=== PATIENT | female | born 1990 | race African-American/Black ===

== ENCOUNTER 2019-09-09 13:36 | Observation (INO) ==
[2019-09-09 21:58] LABS: Apearance,Urine CLOUDY (Clear); Bacteria,Urine Occasional /HPF (Few); Bilirubin,Urine Negative (Negative); Blood, Urine Negative (Negative); Glucose,Urine (UA) Negative (Negative); Ketones,Urine Negative (Negative); Mucus,Urine Few /LPF (Occasional); Nitrite,Urine Negative (Negative); Protein,Urine Negative; Squamous Epithelial Cell,Urine Moderate /HPF (0-10); Urine Color Yellow (Yellow); Urine Specific Gravity 1.018 (1.001-1.035); Urine Urobilinogen < 2.0 EU/DL (0.2-1.0)
[2019-09-10 00:08] LABS: Alanine Aminotransferase 12 U/L (13-56); Albumin 3.5 G/DL (3.4-5.0); Alkaline Phosphatase 134 U/L (45-117); Aspartate Amino Transferase 14 U/L (0-37); Bilirubin,Total < 0.39 MG/DL (0.2-1.0); Blood Urea Nitrogen 14 MG/DL (7-18); Calcium 9.4 MG/DL (8.5-10.1); Estimated Glom Filtration Rate 93 ML/MIN; Glucose 77 MG/DL (74-106); Total Protein 7.7 G/DL (6.4-8.3)
[2019-09-10 00:43] LABS: PT Patient Result 10.9 SECS (9.8-11.9)
[2019-09-10] MEDS ORDERED: MORPHINE 4 MG/1 ML VIAL IV PRN (02:20)
[2019-09-10] MEDS ORDERED: ACETAMINOPHEN 325 MG TABLET PO PRN (02:20)
[2019-09-10] MEDS ORDERED: ONDANSETRON 4 MG/2 ML VIAL IV PRN (02:20)
[2019-09-10] MEDS ORDERED: SODIUM CHLORIDE 0.9% 1,000 ML IV SCH (02:20)
[2019-09-10 06:41] LABS: Basophils % 0.2 % (0.0-0.8); Eosinophils # 0.1 10*3/uL (0.0-0.87); Eosinophils % 1.5 % (0.00-10.9); Hematocrit 24.1 VOL% (35.7-47.0); Immature Granulocytes % 0.7 %; Immature Granulocytes Absolute 0.03 #; Lymphocytes % 20.7 % (21.3-54.2); Mean Corpuscular Volume 91.6 FL (87-102); Mean Platelet Volume 12.3 FL (9.6-12.0); Monocytes % 8.9 % (1.7-12.7); Platelet Count 167 T/CUMM (130-400); Red Blood Count 2.63 MC/CUMM (3.8-5.5); Red Cell Distribution Width 17.6 % (9.3-17.3); White Blood Count 4.6 T/CUMM (4-12)
[2019-09-10 07:11] LABS: Albumin 1.8 G/DL (3.4-5.0); Bilirubin,Total 1.3 MG/DL (0.2-1.0); Osmolality,Calculated 285.8 MOS/KG (273-304); Total Protein 5.3 G/DL (6.4-8.3)
[2019-09-10] MEDS: PANTOPRAZOLE 40 MG TABLET PO SCH (09:12)
[2019-09-10] MEDS ORDERED: POTASSIUM CHLORIDE 20 MEQ TABLET PO PRN (12:22)
[2019-09-10 12:51] LABS: Hemoglobin 9.9 GM/DL (12.0-16.0)
[2019-09-10] MEDS: POTASSIUM CHLORIDE 20 MEQ TABLET PO SCH ×2 (12:55→21:06)
[2019-09-11 08:22] VITALS: BP 129/97
[2019-09-11] MEDS: PANTOPRAZOLE 40 MG TABLET PO SCH (09:04)
[2019-09-11] MEDS: POTASSIUM CHLORIDE 20 MEQ TABLET PO SCH (09:04)
[2019-09-11 09:32] LABS: Basophils % 0.3 % (0.0-0.8); Eosinophils # 0.1 10*3/uL (0.0-0.87); Eosinophils % 1.7 % (0.00-10.9); Hematocrit 32.7 VOL% (35.7-47.0); Hemoglobin 9.8 GM/DL (12.0-16.0); Immature Granulocytes % 0.2 %; Immature Granulocytes Absolute 0.01 #; Lymphocytes # 0.9 10*3/uL (1.4-4.0); Mean Corpuscular Volume 77.7 FL (87-102); Mean Platelet Volume 10.9 FL (9.6-12.0); Monocytes % 6.5 % (1.7-12.7); Neutrophils % 75.3 % (38.7-73.9); Platelet Count 313 T/CUMM (130-400); Red Blood Count 4.21 MC/CUMM (3.8-5.5); Red Cell Distribution Width 15.1 % (9.3-17.3); White Blood Count 5.9 T/CUMM (4-12)
[2019-09-11 10:03] LABS: Calcium 9.2 MG/DL (8.5-10.1)
== END 2019-09-11 12:20 | disposition home or self-care (01) ==
LOC: N.EDINP 13:36 → N.ED 13:36 → N.EDINP 09-10 01:46 → N.3E 09-10 02:32
PROVIDERS: ADMIT Surgery; ATTEND Surgery

== ENCOUNTER 2019-10-29 21:13 | Inpatient (IN) ==
[2019-10-29 21:53] LABS: Basophils % 0.1 % (0.0-0.8); Hematocrit 22.6 VOL% (35.7-47.0); Hemoglobin 6.7 GM/DL (12.0-16.0); Immature Granulocytes % 0.8 %; Immature Granulocytes Absolute 0.19 #; Lymphocytes # 1.1 10*3/uL (1.4-4.0); Lymphocytes % 4.6 % (21.3-54.2); Mean Corpuscular HGB Conc 29.6 GM/DL (32-36); Mean Corpuscular Volume 72.7 FL (87-102); Mean Platelet Volume 8.5 FL (9.6-12.0); Monocytes % 4.9 % (1.7-12.7); Neutrophils % 89.6 % (38.7-73.9); Platelet Count 384 T/CUMM (130-400); Red Blood Count 3.11 MC/CUMM (3.8-5.5); Red Cell Distribution Width 18.4 % (9.3-17.3); White Blood Count 23.6 T/CUMM (4-12)
[2019-10-29 22:20] LABS: Bilirubin,Total 0.5 MG/DL (0.2-1.0); Calcium 8.6 MG/DL (8.5-10.1); Total Protein 7.2 G/DL (6.4-8.3)
[2019-10-29] MEDS ORDERED: SODIUM CHLORIDE 0.9% 1,000 ML IV STA (22:41)
[2019-10-29] MEDS ORDERED: MORPHINE 4 MG/1 ML VIAL IV ONE (22:42)
[2019-10-29] MEDS ORDERED: ONDANSETRON 4 MG/2 ML VIAL IV STA (22:42)
[2019-10-29 23:09] LABS: INR 1.1; PT Patient Result 11.4 SECS (9.8-11.9); Partial Thromboplastin Time 25.1 SECS (23.9-33.8)
[2019-10-29] MEDS ORDERED: PIPERACILLIN/TAZOBACTAM 3,375 MG in SODIUM CHLORIDE 0.9% 100 ML IV STA (23:31)
[2019-10-29] MEDS ORDERED: SODIUM CHLORIDE 0.9% 1,000 ML IV PRN (23:33)
[2019-10-29 23:37] LABS: Band Neutrophils 1 % (0-10); Lymphocytes 6 % (20-55); Segmented Neutrophils 93 % (50-85); Total Cells Counted 100
[2019-10-29 23:38] LABS: Anisocytosis 1+; Hypochromasia 2+; Microcytosis 3+; Platelet Estimate Normal; Polychromasia Slight
[2019-10-29 23:39] LABS: Ovalocytes Slight
[2019-10-29 23:40] LABS: Schistocytes Slight
[2019-10-30 00:10] LABS: Apearance,Urine CLEAR (Clear); Bilirubin,Urine Negative (Negative); Blood, Urine Moderate mg/dL (Negative); Glucose,Urine (UA) 50 mg/dL (Negative); Ketones,Urine Negative (Negative); Mucus,Urine Moderate /LPF (Occasional); Nitrite,Urine Negative (Negative); Protein,Urine Negative; RBC,Urine 25 /HPF (0-4); Squamous Epithelial Cell,Urine Occasional /HPF (0-10); Urine Color Yellow (Yellow); Urine Specific Gravity > 1.060 (1.001-1.035); Urine Urobilinogen < 2.0 EU/DL (0.2-1.0)
[2019-10-30] MEDS ORDERED: HYDROmorphone 2 MG/1 ML VIAL IV STA (00:12)
[2019-10-30] MEDS ORDERED: BISACODYL 5 MG TABLET PO PRN (01:46)
[2019-10-30] MEDS ORDERED: GLUCAGON 1 MG VIAL IM PRN (01:46)
[2019-10-30] MEDS ORDERED: DEXTROSE 50% 25 GM/50 ML VIAL IV PRN ×2 (01:46→02:29)
[2019-10-30] MEDS: HYDROmorphone 2 MG/1 ML VIAL IV PRN ×5 (03:00→21:03)
[2019-10-30] MEDS: SODIUM CHLORIDE 0.9% 1,000 ML IV SCH ×4 (03:51→21:03)
[2019-10-30] MEDS: hydrALAZINE 20 MG/1 ML VIAL IV PRN (06:38)
[2019-10-30 07:30] LABS: Alanine Aminotransferase 11 U/L (13-56); Albumin 2.5 G/DL (3.4-5.0); Alkaline Phosphatase 98 U/L (45-117); Aspartate Amino Transferase 23 U/L (0-37); Bilirubin,Total < 0.39 MG/DL (0.2-1.0); Blood Urea Nitrogen 11 MG/DL (7-18); Calcium 8.3 MG/DL (8.5-10.1); Estimated Glom Filtration Rate 113 ML/MIN; Glucose 113 MG/DL (74-106); Total Protein 6.1 G/DL (6.4-8.3)
[2019-10-30] MEDS ORDERED: INSULIN LISPRO 100 UNIT/ML SUBCUT SCH (07:30)
[2019-10-30] MEDS ORDERED: METOPROLOL TARTRATE 5 MG/5 ML VIAL IV ONE (09:34)
[2019-10-30] MEDS: PYRIDOXINE 50 MG TABLET PO SCH (09:36)
[2019-10-30] MEDS: THIAMINE 100 MG TABLET PO SCH (09:36)
[2019-10-30] MEDS: MULTIVITAMIN (CENTRUM) TABLET PO SCH (09:36)
[2019-10-30] MEDS: PANTOPRAZOLE 40 MG TABLET PO SCH (09:36)
[2019-10-30] MEDS: oxyCODONE/ACETAMINOPHEN 5-325 MG TABLET PO PRN (12:17)
[2019-10-30] MEDS: METOPROLOL TARTRATE 25 MG TABLET PO SCH ×2 (12:18→21:03)
[2019-10-30 13:23] LABS: Hematocrit 28.7 VOL% (35.7-47.0)
[2019-10-30 13:26] LABS: Hemoglobin 9.5 GM/DL (12.0-16.0)
[2019-10-30] MEDS: PIPERACILLIN/TAZOBACTAM 3,375 MG in SODIUM CHLORIDE 0.9% 100 ML IV SCH (15:32)
[2019-10-31] MEDS: hydrALAZINE 20 MG/1 ML VIAL IV PRN ×2 (00:11→18:25)
[2019-10-31] MEDS: HYDROmorphone 2 MG/1 ML VIAL IV PRN ×7 (00:12→20:34)
[2019-10-31] MEDS: PIPERACILLIN/TAZOBACTAM 3,375 MG in SODIUM CHLORIDE 0.9% 100 ML IV SCH ×3 (00:20→16:22)
[2019-10-31] MEDS: LACTATED RINGERS 1,000 ML IV SCH ×3 (03:18→20:33)
[2019-10-31 06:31] LABS: Basophils % 0.1 % (0.0-0.8); Hematocrit 28.3 VOL% (35.7-47.0); Hemoglobin 9.2 GM/DL (12.0-16.0); Immature Granulocytes % 0.9 %; Lymphocytes # 1.5 10*3/uL (1.4-4.0); Lymphocytes % 6.9 % (21.3-54.2); Mean Corpuscular HGB Conc 32.5 GM/DL (32-36); Mean Corpuscular Volume 76.9 FL (87-102); Mean Platelet Volume 8.9 FL (9.6-12.0); Monocytes % 7.9 % (1.7-12.7); NRBC # 0.02 10*3/uL; Neutrophils % 84.2 % (38.7-73.9); Platelet Count 226 T/CUMM (130-400); Red Blood Count 3.68 MC/CUMM (3.8-5.5); Red Cell Distribution Width 19.3 % (9.3-17.3); White Blood Count 21.8 T/CUMM (4-12)
[2019-10-31 06:50] LABS: Calcium 8.3 MG/DL (8.5-10.1)
[2019-10-31 06:54] LABS: Hypochromasia 1+; Lymphocytes 8 % (20-55); Microcytosis Slight; Nucleated Red Blood Cells 1 (0-5); Ovalocytes Slight; Platelet Estimate Adequate; Segmented Neutrophils 89 % (50-85); Total Cells Counted 100
[2019-10-31] MEDS: THIAMINE 100 MG TABLET PO SCH (09:46)
[2019-10-31] MEDS: PANTOPRAZOLE 40 MG TABLET PO SCH (09:46)
[2019-10-31] MEDS: MULTIVITAMIN (CENTRUM) TABLET PO SCH (09:47)
[2019-10-31] MEDS: PYRIDOXINE 50 MG TABLET PO SCH (09:47)
[2019-10-31] MEDS: METOPROLOL TARTRATE 25 MG TABLET PO SCH ×2 (09:47→20:33)
[2019-10-31] MEDS: oxyCODONE/ACETAMINOPHEN 5-325 MG TABLET PO PRN (11:11)
[2019-10-31] MEDS ORDERED: METOPROLOL TARTRATE 25 MG TABLET PO ONE (14:28)
[2019-10-31] MEDS ORDERED: fentaNYL 25 MCG/HR PATCH TRANSDERM SCH (15:00)
[2019-10-31] MEDS: ONDANSETRON 4 MG/2 ML VIAL IV PRN (21:18)
[2019-11-01] MEDS: PIPERACILLIN/TAZOBACTAM 3,375 MG in SODIUM CHLORIDE 0.9% 100 ML IV SCH ×2 (00:59→11:54)
[2019-11-01] MEDS: HYDROmorphone 2 MG/1 ML VIAL IV PRN ×7 (00:59→22:00)
[2019-11-01] MEDS: ONDANSETRON 4 MG/2 ML VIAL IV PRN ×3 (04:50→22:00)
[2019-11-01 05:17] LABS: Basophils % 0.1 % (0.0-0.8); Hematocrit 25.5 VOL% (35.7-47.0); Hemoglobin 8.3 GM/DL (12.0-16.0); Immature Granulocytes Absolute 0.22 #; Lymphocytes # 1.4 10*3/uL (1.4-4.0); Lymphocytes % 6.1 % (21.3-54.2); Mean Corpuscular HGB Conc 32.5 GM/DL (32-36); Mean Corpuscular Volume 75.9 FL (87-102); Mean Platelet Volume 9.6 FL (9.6-12.0); Monocytes % 6.5 % (1.7-12.7); NRBC # 0.02 10*3/uL; Neutrophils % 86.3 % (38.7-73.9); Platelet Count 254 T/CUMM (130-400); Red Blood Count 3.36 MC/CUMM (3.8-5.5); Red Cell Distribution Width 20.1 % (9.3-17.3); White Blood Count 22.5 T/CUMM (4-12)
[2019-11-01 05:47] LABS: Hypochromasia 1+; Lymphocytes 9 % (20-55); Microcytosis Slight; Ovalocytes Slight; Platelet Estimate Adequate; Segmented Neutrophils 89 % (50-85); Total Cells Counted 100
[2019-11-01 05:50] LABS: Calcium 8.4 MG/DL (8.5-10.1); Osmolality,Calculated 261.4 MOS/KG (273-304)
[2019-11-01] MEDS: LACTATED RINGERS 1,000 ML IV SCH ×2 (07:09→07:10)
[2019-11-01] MEDS ORDERED: FUROSEMIDE 40 MG/4 ML VIAL IV ONE (07:20)
[2019-11-01 07:49] LABS: % Iron Saturation 3.7 % (18-50); Ferritin 174.2 ng/ml (8-252)
[2019-11-01] MEDS: METOPROLOL TARTRATE 25 MG TABLET PO SCH (09:24)
[2019-11-01] MEDS: MULTIVITAMIN (CENTRUM) TABLET PO SCH (09:24)
[2019-11-01] MEDS: PYRIDOXINE 50 MG TABLET PO SCH (09:24)
[2019-11-01] MEDS: PANTOPRAZOLE 40 MG TABLET PO SCH (09:24)
[2019-11-01] MEDS: THIAMINE 100 MG TABLET PO SCH (09:25)
[2019-11-01 09:50] LABS: Folate 3.9 NG/ML (5.4-24.0)
[2019-11-01] MEDS: VANCOMYCIN INJ 1,000 MG in SODIUM CHLORIDE 0.9% 250 ML IV SCH ×2 (11:02→21:58)
[2019-11-01] MEDS: hydrALAZINE 20 MG/1 ML VIAL IV PRN (11:52)
[2019-11-01] MEDS ORDERED: METOPROLOL TARTRATE 25 MG TABLET PO SCH (13:39)
[2019-11-01 19:05] LABS: Lymphocytes,Pleural Fluid 12 %; Monocytes,Pleural Fluid 28 %; Neutrophils,Pleural Fluid 60 %; RBC,Pleural Fluid 9928 T/CUMM
[2019-11-01] MEDS: amLODIPine 5 MG TABLET PO SCH (21:59)
[2019-11-02] MEDS: PIPERACILLIN/TAZOBACTAM 3,375 MG in SODIUM CHLORIDE 0.9% 100 ML IV SCH ×3 (00:25→22:27)
[2019-11-02] MEDS: HYDROmorphone 2 MG/1 ML VIAL IV PRN ×6 (00:39→22:22)
[2019-11-02 05:33] LABS: Basophils % 0.1 % (0.0-0.8); Hematocrit 27.4 VOL% (35.7-47.0); Hemoglobin 8.8 GM/DL (12.0-16.0); Immature Granulocytes % 0.8 %; Immature Granulocytes Absolute 0.21 #; Lymphocytes # 1.2 10*3/uL (1.4-4.0); Lymphocytes % 4.9 % (21.3-54.2); Mean Corpuscular HGB Conc 32.1 GM/DL (32-36); Mean Corpuscular Volume 76.8 FL (87-102); Mean Platelet Volume 9.4 FL (9.6-12.0); Monocytes % 7.6 % (1.7-12.7); Neutrophils % 86.6 % (38.7-73.9); Platelet Count 343 T/CUMM (130-400); Red Blood Count 3.57 MC/CUMM (3.8-5.5); Red Cell Distribution Width 20.5 % (9.3-17.3); White Blood Count 25.3 T/CUMM (4-12)
[2019-11-02 05:56] LABS: Lymphocytes 4 % (20-55); Platelet Estimate Adequate; Segmented Neutrophils 89 % (50-85); Total Cells Counted 100
[2019-11-02 05:57] LABS: Hypochromasia 1+; Microcytosis Slight; Ovalocytes Slight
[2019-11-02 05:58] LABS: Calcium 8.6 MG/DL (8.5-10.1); Osmolality,Calculated 266.1 MOS/KG (273-304)
[2019-11-02] MEDS: ONDANSETRON 4 MG/2 ML VIAL IV PRN ×2 (06:21→11:24)
[2019-11-02] MEDS ORDERED: POTASSIUM CHLORIDE 20 MEQ TABLET PO ONE ×3 (07:19→17:00)
[2019-11-02] MEDS ORDERED: LACTATED RINGERS 1,000 ML IV SCH (08:00)
[2019-11-02] MEDS: MULTIVITAMIN (CENTRUM) TABLET PO SCH (08:28)
[2019-11-02] MEDS: THIAMINE 100 MG TABLET PO SCH (08:28)
[2019-11-02] MEDS: PYRIDOXINE 50 MG TABLET PO SCH (08:28)
[2019-11-02] MEDS: PANTOPRAZOLE 40 MG TABLET PO SCH (08:28)
[2019-11-02] MEDS: METOPROLOL TARTRATE 50 MG TABLET PO SCH ×2 (08:33→21:15)
[2019-11-02] MEDS: amLODIPine 5 MG TABLET PO SCH (08:33)
[2019-11-02] MEDS: oxyCODONE/ACETAMINOPHEN 5-325 MG TABLET PO PRN ×3 (08:33→17:44)
[2019-11-02] MEDS: DILTIAZEM 30 MG TABLET PO SCH ×3 (08:33→21:10)
[2019-11-02] MEDS ORDERED: DILTIAZEM 30 MG TABLET PO SCH (09:00)
[2019-11-02] MEDS: fentaNYL 50 MCG/HR PATCH TRANSDERM SCH (09:38)
[2019-11-02] MEDS: VANCOMYCIN INJ 1,000 MG in SODIUM CHLORIDE 0.9% 250 ML IV SCH ×2 (09:38→21:14)
[2019-11-02] MEDS: IRON SUCROSE 200 MG in SODIUM CHLORIDE 0.9% 100 ML IV SCH (15:09)
[2019-11-02] MEDS: methylPREDNISolone SOD SUC 40 MG/1 ML VIAL IV SCH (17:44)
[2019-11-02] MEDS: ALBUTEROL 2.5 MG/3 ML NEB RESP TX SCH (23:47)
[2019-11-03] MEDS: methylPREDNISolone SOD SUC 40 MG/1 ML VIAL IV SCH (00:22)
[2019-11-03] MEDS: HYDROmorphone 2 MG/1 ML VIAL IV PRN ×4 (02:30→21:49)
[2019-11-03] MEDS: PIPERACILLIN/TAZOBACTAM 3,375 MG in SODIUM CHLORIDE 0.9% 100 ML IV SCH ×3 (05:09→21:01)
[2019-11-03 06:15] LABS: Hematocrit 25.8 VOL% (35.7-47.0); Hemoglobin 8.2 GM/DL (12.0-16.0); Immature Granulocytes % 0.8 %; Lymphocytes # 0.8 10*3/uL (1.4-4.0); Lymphocytes % 3.2 % (21.3-54.2); Mean Corpuscular HGB Conc 31.8 GM/DL (32-36); Mean Corpuscular Volume 77.2 FL (87-102); Mean Platelet Volume 8.7 FL (9.6-12.0); Monocytes % 1.2 % (1.7-12.7); NRBC # 0.02 10*3/uL; Neutrophils % 94.8 % (38.7-73.9); Platelet Count 376 T/CUMM (130-400); Red Blood Count 3.34 MC/CUMM (3.8-5.5); Red Cell Distribution Width 20.9 % (9.3-17.3); White Blood Count 23.8 T/CUMM (4-12)
[2019-11-03 06:32] LABS: Albumin 2.2 G/DL (3.4-5.0); Bilirubin,Total 0.8 MG/DL (0.2-1.0); Calcium 8.8 MG/DL (8.5-10.1); Osmolality,Calculated 270.8 MOS/KG (273-304); Total Protein 6.4 G/DL (6.4-8.3)
[2019-11-03 06:54] LABS: Band Neutrophils 7 % (0-10); Lymphocytes 1 % (20-55); Platelet Estimate Normal; Poikilocytosis 1+; Segmented Neutrophils 91 % (50-85); Total Cells Counted 100
[2019-11-03 06:55] LABS: Anisocytosis 3+; Burr Cells Few; Hypochromasia Slight
[2019-11-03] MEDS: ALBUTEROL 2.5 MG/3 ML NEB RESP TX SCH ×3 (07:18→23:29)
[2019-11-03] MEDS ORDERED: diphenhydrAMINE 50 MG/1 ML VIAL IV ONE (08:00)
[2019-11-03] MEDS ORDERED: DEXAMETHASONE INJ 20 MG in SODIUM CHLORIDE 0.9% 50 ML IV ONE (08:00)
[2019-11-03] MEDS ORDERED: FAMOTIDINE INJ 40 MG in SODIUM CHLORIDE 0.9% 100 ML IV ONE (08:00)
[2019-11-03] MEDS ORDERED: FOSAPREPITANT 150 MG in SODIUM CHLORIDE 0.9% 100 ML IV ONE (08:00)
[2019-11-03] MEDS ORDERED: PALONOSETRON 0.25 MG/5 ML VIAL IV ONE (08:00)
[2019-11-03] MEDS ORDERED: DOCETAXEL IV ONE (09:00)
[2019-11-03] MEDS ORDERED: SODIUM CHLORIDE 0.9% IV ONE ×2 (09:00)
[2019-11-03] MEDS ORDERED: GEMCITABINE IV ONE (09:00)
[2019-11-03] MEDS: METOPROLOL TARTRATE 50 MG TABLET PO SCH ×2 (09:43→20:25)
[2019-11-03] MEDS: THIAMINE 100 MG TABLET PO SCH (09:43)
[2019-11-03] MEDS: PYRIDOXINE 50 MG TABLET PO SCH (09:43)
[2019-11-03] MEDS: PANTOPRAZOLE 40 MG TABLET PO SCH (09:43)
[2019-11-03] MEDS: MULTIVITAMIN (CENTRUM) TABLET PO SCH (09:44)
[2019-11-03] MEDS: DILTIAZEM 60 MG TABLET PO SCH ×3 (09:44→20:24)
[2019-11-03] MEDS: amLODIPine 5 MG TABLET PO SCH (09:45)
[2019-11-03] MEDS: VANCOMYCIN INJ 1,000 MG in SODIUM CHLORIDE 0.9% 250 ML IV SCH ×2 (09:49→17:31)
[2019-11-03] MEDS: CHLORHEXIDINE 0.12% ORAL RINSE 60 ML BOTTLE SWISH/SPIT SCH ×2 (10:37→20:25)
[2019-11-03] MEDS: IRON SUCROSE 200 MG in SODIUM CHLORIDE 0.9% 100 ML IV SCH (16:39)
[2019-11-03] MEDS ORDERED: guaiFENesin/CODEINE 5 ML LIQUID PO PRN (17:29)
[2019-11-03] MEDS: oxyCODONE/ACETAMINOPHEN 5-325 MG TABLET PO PRN (20:25)
[2019-11-04] MEDS: VANCOMYCIN INJ 1,000 MG in SODIUM CHLORIDE 0.9% 250 ML IV SCH ×4 (00:01→18:37)
[2019-11-04] MEDS: PIPERACILLIN/TAZOBACTAM 3,375 MG in SODIUM CHLORIDE 0.9% 100 ML IV SCH ×3 (06:19→21:10)
[2019-11-04] MEDS: ALBUTEROL 2.5 MG/3 ML NEB RESP TX SCH ×2 (07:27→15:10)
[2019-11-04] MEDS: METOPROLOL TARTRATE 50 MG TABLET PO SCH ×2 (08:46→21:09)
[2019-11-04] MEDS: MULTIVITAMIN (CENTRUM) TABLET PO SCH (08:46)
[2019-11-04] MEDS: amLODIPine 5 MG TABLET PO SCH (08:46)
[2019-11-04] MEDS: DILTIAZEM 60 MG TABLET PO SCH ×3 (08:46→21:09)
[2019-11-04] MEDS: THIAMINE 100 MG TABLET PO SCH (08:46)
[2019-11-04] MEDS: PANTOPRAZOLE 40 MG TABLET PO SCH (08:47)
[2019-11-04] MEDS: PYRIDOXINE 50 MG TABLET PO SCH (08:47)
[2019-11-04] MEDS: CHLORHEXIDINE 0.12% ORAL RINSE 60 ML BOTTLE SWISH/SPIT SCH ×2 (08:54→21:09)
[2019-11-04] MEDS: IRON SUCROSE 200 MG in SODIUM CHLORIDE 0.9% 100 ML IV SCH (12:18)
[2019-11-05] MEDS: ALBUTEROL 2.5 MG/3 ML NEB RESP TX SCH ×3 (00:35→15:41)
[2019-11-05] MEDS: VANCOMYCIN INJ 1,000 MG in SODIUM CHLORIDE 0.9% 250 ML IV SCH (02:49)
[2019-11-05] MEDS: PIPERACILLIN/TAZOBACTAM 3,375 MG in SODIUM CHLORIDE 0.9% 100 ML IV SCH ×2 (05:50→13:24)
[2019-11-05 06:52] LABS: Albumin 1.3 G/DL (3.4-5.0); Bilirubin,Total 0.5 MG/DL (0.2-1.0); Calcium 8.4 MG/DL (8.5-10.1); Osmolality,Calculated 278.4 MOS/KG (273-304); Total Protein 6.5 G/DL (6.4-8.3)
[2019-11-05] MEDS ORDERED: POTASSIUM CHLORIDE 20 MEQ TABLET PO PRN (07:14)
[2019-11-05] MEDS: CHLORHEXIDINE 0.12% ORAL RINSE 60 ML BOTTLE SWISH/SPIT SCH (08:14)
[2019-11-05] MEDS: MULTIVITAMIN (CENTRUM) TABLET PO SCH (08:17)
[2019-11-05] MEDS: PYRIDOXINE 50 MG TABLET PO SCH (08:17)
[2019-11-05] MEDS: DILTIAZEM 60 MG TABLET PO SCH ×2 (08:17→14:13)
[2019-11-05] MEDS: METOPROLOL TARTRATE 50 MG TABLET PO SCH (08:18)
[2019-11-05] MEDS: fentaNYL 50 MCG/HR PATCH TRANSDERM SCH (08:18)
[2019-11-05] MEDS: amLODIPine 5 MG TABLET PO SCH (08:18)
[2019-11-05] MEDS: PANTOPRAZOLE 40 MG TABLET PO SCH (08:18)
[2019-11-05] MEDS: THIAMINE 100 MG TABLET PO SCH (08:18)
[2019-11-05] MEDS: POTASSIUM CHLORIDE 20 MEQ TABLET PO SCH ×2 (08:18→11:31)
[2019-11-05] MEDS: IRON SUCROSE 200 MG in SODIUM CHLORIDE 0.9% 100 ML IV SCH (08:19)
[2019-11-05] MEDS ORDERED: POTASSIUM PHOSPHATE 30 MMOL in SODIUM CHLORIDE 0.9% 250 ML IV ONE (12:00)
[2019-11-05] MEDS: ONDANSETRON 4 MG/2 ML VIAL IV PRN (14:13)
[2019-11-05] MEDS: oxyCODONE/ACETAMINOPHEN 5-325 MG TABLET PO PRN (17:39)
[2019-11-05] MEDS ORDERED: HEPARIN LOCK FLUSH 500 UNIT/5 ML SYRINGE IV ONE (18:12)
[2019-11-06 05:43] VITALS: BP 122/76
== END 2019-11-05 20:45 | disposition home or self-care (01) | DRG 948 ==
LOC: N.ED 21:13 → N.EDINP 10-30 01:46 → SUATTDRO 10-30 01:46 → SUPCPDRO 10-30 01:46 → N.EDINP 10-30 03:05 → N.TELEN 10-30 03:19 → N.4E 11-02 20:52
PROVIDERS: ADMIT Internal Medicine; ATTEND Internal Medicine

== ENCOUNTER 2019-11-07 08:22 | Observation (INO) ==
[2019-11-07] MEDS ORDERED: ONDANSETRON 4 MG/2 ML VIAL IV STA (09:25)
[2019-11-07] MEDS ORDERED: HYDROmorphone 2 MG/1 ML VIAL IV STA ×2 (09:25→13:43)
[2019-11-07] MEDS ORDERED: SODIUM CHLORIDE 0.9% 1,000 ML IV STA (09:25)
[2019-11-07 09:37] LABS: Basophils % 0.1 % (0.0-0.8); Eosinophils # 0.1 10*3/uL (0.0-0.87); Eosinophils % 0.5 % (0.00-10.9); Hematocrit 27.8 VOL% (35.7-47.0); Hemoglobin 8.7 GM/DL (12.0-16.0); Immature Granulocytes % 0.4 %; Immature Granulocytes Absolute 0.05 #; Lymphocytes # 0.8 10*3/uL (1.4-4.0); Lymphocytes % 6.6 % (21.3-54.2); Mean Corpuscular HGB Conc 31.3 GM/DL (32-36); Mean Corpuscular Volume 77.2 FL (87-102); Mean Platelet Volume 10.3 FL (9.6-12.0); Monocytes % 0.3 % (1.7-12.7); Neutrophils % 92.1 % (38.7-73.9); Platelet Count 358 T/CUMM (130-400); Red Cell Distribution Width 22.5 % (9.3-17.3)
[2019-11-07 09:50] LABS: Eosinophils 1 % (0-10); Lymphocytes 5 % (20-55); Segmented Neutrophils 94 % (50-85); Total Cells Counted 100
[2019-11-07 09:51] LABS: Hypochromasia 1+; Microcytosis Slight; Platelet Estimate Adequate
[2019-11-07 09:52] LABS: Alanine Aminotransferase 60 U/L (13-56); Albumin 2.9 G/DL (3.4-5.0); Alkaline Phosphatase 126 U/L (45-117); Aspartate Amino Transferase 74 U/L (0-37); Blood Urea Nitrogen 17 MG/DL (7-18); Calcium 8.9 MG/DL (8.5-10.1); Estimated Glom Filtration Rate 113 ML/MIN; Glucose 111 MG/DL (74-106); Total Protein 6.5 G/DL (6.4-8.3); Troponin I < 0.015 NG/ML (0.00-0.045)
[2019-11-07 09:56] LABS: PT Patient Result 10.7 SECS (9.8-11.9); Partial Thromboplastin Time 32.4 SECS (23.9-33.8)
[2019-11-07 10:31] LABS: Apearance,Urine CLEAR (Clear); Bilirubin,Urine Negative (Negative); Blood, Urine Small mg/dL (Negative); Glucose,Urine (UA) Negative (Negative); Ketones,Urine Negative (Negative); Mucus,Urine Moderate /LPF (Occasional); Nitrite,Urine Negative (Negative); Protein,Urine Negative; RBC,Urine 1 /HPF (0-4); Squamous Epithelial Cell,Urine Few /HPF (0-10); Urine Color Yellow (Yellow); Urine Specific Gravity 1.012 (1.001-1.035); Urine Urobilinogen < 2.0 EU/DL (0.2-1.0); WBC,Urine <1 /HPF (0-6)
[2019-11-07 11:26] LABS: Barbiturates Screen,Urine Negative (Negative); Benzodiazepines Screen,Urine Negative (Negative); Cannabinoid Screen,Urine Negative (Negative); Opiate Screen,Urine Positive (Negative); Phencyclidine Screen,Urine Negative (Negative)
[2019-11-07] MEDS ORDERED: ENOXAPARIN 100 MG/ML SYRINGE SUBCUT STA (13:18)
[2019-11-07] MEDS ORDERED: DOCUSATE SODIUM 100 MG CAPSULE PO PRN (14:31)
[2019-11-07] MEDS ORDERED: GLUCAGON 1 MG VIAL IM PRN (14:31)
[2019-11-07] MEDS ORDERED: hydrALAZINE 20 MG/1 ML VIAL IV PRN (14:31)
[2019-11-07] MEDS ORDERED: DEXTROSE 50% 25 GM/50 ML VIAL IV PRN (14:31)
[2019-11-07] MEDS ORDERED: ACETAMINOPHEN 325 MG TABLET PO PRN (14:31)
[2019-11-07] MEDS ORDERED: ONDANSETRON 4 MG TABLET PO PRN (14:37)
[2019-11-07 14:54] LABS: Risk Ratio 3.98; VLDL CHOLESTEROL 26.8 MG/DL
[2019-11-07] MEDS ORDERED: HYDROmorphone 2 MG/1 ML VIAL IV PRN (17:24)
[2019-11-07] MEDS: amLODIPine 5 MG TABLET PO SCH (17:31)
[2019-11-07] MEDS: POTASSIUM CHLORIDE 20 MEQ TABLET PO SCH (17:31)
[2019-11-07] MEDS: METOPROLOL TARTRATE 50 MG TABLET PO SCH ×2 (17:31→20:43)
[2019-11-07] MEDS: AMOXICILLIN/CLAV 875 MG TABLET PO SCH ×2 (17:31→20:43)
[2019-11-07] MEDS: APIXABAN 5 MG TABLET PO SCH (20:43)
[2019-11-07] MEDS: FERROUS SULFATE 325 MG TABLET PO SCH (20:43)
[2019-11-07] MEDS: HYDROmorphone 2 MG/1 ML VIAL IV PRN (20:44)
[2019-11-07] MEDS: oxyCODONE/ACETAMINOPHEN 5-325 MG TABLET PO PRN (23:57)
[2019-11-08] MEDS: HYDROmorphone 2 MG/1 ML VIAL IV PRN ×2 (04:02→08:22)
[2019-11-08 06:08] LABS: Eosinophils # 0.1 10*3/uL (0.0-0.87); Eosinophils % 1.2 % (0.00-10.9); Hematocrit 25.4 VOL% (35.7-47.0); Immature Granulocytes % 0.5 %; Immature Granulocytes Absolute 0.05 #; Lymphocytes # 1.1 10*3/uL (1.4-4.0); Mean Corpuscular HGB Conc 31.5 GM/DL (32-36); Mean Corpuscular Volume 76.7 FL (87-102); Mean Platelet Volume 9.5 FL (9.6-12.0); Monocytes % 0.7 % (1.7-12.7); Neutrophils % 87.6 % (38.7-73.9); Platelet Count 274 T/CUMM (130-400); Red Blood Count 3.31 MC/CUMM (3.8-5.5); Red Cell Distribution Width 22.5 % (9.3-17.3); White Blood Count 10.8 T/CUMM (4-12)
[2019-11-08 06:22] LABS: Calcium 8.6 MG/DL (8.5-10.1); Osmolality,Calculated 275.7 MOS/KG (273-304)
[2019-11-08 06:45] LABS: Band Neutrophils 2 % (0-10); Eosinophils 3 % (0-10); Hypochromasia 1+; Lymphocytes 15 % (20-55); Segmented Neutrophils 79 % (50-85); Total Cells Counted 100
[2019-11-08 06:46] LABS: Microcytosis 1+; Platelet Estimate Normal; Target Cells Slight
[2019-11-08] MEDS: amLODIPine 5 MG TABLET PO SCH (08:14)
[2019-11-08] MEDS: FERROUS SULFATE 325 MG TABLET PO SCH (08:14)
[2019-11-08] MEDS: AMOXICILLIN/CLAV 875 MG TABLET PO SCH (08:14)
[2019-11-08] MEDS: POTASSIUM CHLORIDE 20 MEQ TABLET PO SCH (08:15)
[2019-11-08] MEDS: METOPROLOL TARTRATE 50 MG TABLET PO SCH (08:15)
[2019-11-08] MEDS: APIXABAN 5 MG TABLET PO SCH (08:15)
[2019-11-08] MEDS ORDERED: LOPERAMIDE 2 MG CAPSULE PO PRN ×2 (08:31)
[2019-11-08] MEDS ORDERED: BENZTROPINE 2 MG/2 ML AMP IV PRN (08:31)
[2019-11-08] MEDS ORDERED: traMADol 50 MG TABLET PO PRN (08:31)
[2019-11-08] MEDS ORDERED: MAGNESIUM HYDROXIDE SUSP 30 ML UDCUP PO PRN (08:31)
[2019-11-08] MEDS ORDERED: LACTULOSE 20 GM/30 ML UDCUP PO PRN (08:31)
[2019-11-08] MEDS ORDERED: TEMAZEPAM 7.5 MG CAPSULE PO PRN (08:31)
[2019-11-08] MEDS ORDERED: diphenhydrAMINE CAP 25 MG CAPSULE PO PRN (08:31)
[2019-11-08] MEDS ORDERED: PROMETHAZINE INJ 25 MG in SODIUM CHLORIDE 0.9% 50 ML IV PRN (08:31)
[2019-11-08] MEDS ORDERED: ALUMINUM/MAGNES/SIMETH MAX STR 30 ML UDCUP PO PRN (08:31)
[2019-11-08] MEDS ORDERED: MYLANTA/LIDO VISC 2:1 300 ML BOTTLE SWISH/SWAL PRN (08:31)
[2019-11-08] MEDS ORDERED: ALPRAZolam 0.25 MG TABLET PO PRN (08:31)
[2019-11-08] MEDS ORDERED: ONDANSETRON 4 MG/2 ML VIAL IV PRN (08:31)
[2019-11-08] MEDS ORDERED: guaiFENesin 200 MG/10 ML UDCUP PO PRN (08:31)
[2019-11-08] MEDS ORDERED: chlorproMAZINE INJ 25 MG in SODIUM CHLORIDE 0.9% 100 ML IV PRN (08:31)
[2019-11-08] MEDS ORDERED: chlorproMAZINE INJ 50 MG in SODIUM CHLORIDE 0.9% 100 ML IV PRN (08:31)
[2019-11-08] MEDS ORDERED: chlorproMAZINE 25 MG TABLET PO PRN (08:31)
[2019-11-08] MEDS ORDERED: MYLANTA/LIDO VISC 2:1 300 ML BOTTLE SWISH/SPIT PRN (08:31)
[2019-11-08] MEDS ORDERED: fentaNYL 50 MCG/HR PATCH TRANSDERM SCH (09:00)
[2019-11-08] MEDS ORDERED: PANTOPRAZOLE 40 MG TABLET PO SCH (09:00)
[2019-11-08] MEDS: oxyCODONE/ACETAMINOPHEN 5-325 MG TABLET PO PRN (09:39)
[2019-11-08] MEDS ORDERED: HEPARIN LOCK FLUSH 500 UNIT/5 ML SYRINGE IV ONE (13:06)
[2019-11-08 14:23] VITALS: BP 106/74
== END 2019-11-08 13:50 | disposition home or self-care (01) ==
LOC: N.EDINP 08:22 → N.ED 08:22 → SUPCPDRO 14:31 → N.4E 17:15
PROVIDERS: ADMIT Internal Medicine; ATTEND Internal Medicine

== ENCOUNTER 2020-01-16 07:11 | Inpatient (IN) ==
[2020-01-16] MEDS ORDERED: LOPERAMIDE 2 MG CAPSULE PO PRN ×2 (08:04)
[2020-01-16] MEDS ORDERED: traMADol 50 MG TABLET PO PRN (08:04)
[2020-01-16] MEDS ORDERED: chlorproMAZINE INJ 50 MG in SODIUM CHLORIDE 0.9% 100 ML IV PRN (08:04)
[2020-01-16] MEDS ORDERED: ALUMINUM/MAGNES/SIMETH MAX STR 30 ML UDCUP PO PRN (08:04)
[2020-01-16] MEDS ORDERED: TEMAZEPAM 7.5 MG CAPSULE PO PRN (08:04)
[2020-01-16] MEDS ORDERED: diphenhydrAMINE CAP 25 MG CAPSULE PO PRN (08:04)
[2020-01-16] MEDS ORDERED: MYLANTA/LIDO VISC 2:1 300 ML BOTTLE SWISH/SPIT PRN (08:04)
[2020-01-16] MEDS ORDERED: chlorproMAZINE INJ 25 MG in SODIUM CHLORIDE 0.9% 100 ML IV PRN (08:04)
[2020-01-16] MEDS ORDERED: MAGNESIUM HYDROXIDE SUSP 30 ML UDCUP PO PRN (08:04)
[2020-01-16] MEDS ORDERED: ACETAMINOPHEN 325 MG TABLET PO PRN (08:04)
[2020-01-16] MEDS ORDERED: PROMETHAZINE INJ 25 MG in SODIUM CHLORIDE 0.9% 50 ML IV PRN (08:04)
[2020-01-16] MEDS ORDERED: LACTULOSE 20 GM/30 ML UDCUP PO PRN (08:04)
[2020-01-16] MEDS ORDERED: MYLANTA/LIDO VISC 2:1 300 ML BOTTLE SWISH/SWAL PRN (08:04)
[2020-01-16] MEDS ORDERED: guaiFENesin 200 MG/10 ML UDCUP PO PRN (08:04)
[2020-01-16 09:37] LABS: Basophils % 0.5 % (0.0-0.8); Eosinophils # 0.1 10*3/uL (0.0-0.87); Eosinophils % 1.3 % (0.00-10.9); Hematocrit 26.6 VOL% (35.7-47.0); Hemoglobin 7.8 GM/DL (12.0-16.0); Immature Granulocytes % 0.2 %; Immature Granulocytes Absolute 0.02 #; Lymphocytes # 0.7 10*3/uL (1.4-4.0); Lymphocytes % 7.6 % (21.3-54.2); Mean Corpuscular HGB Conc 29.3 GM/DL (32-36); Mean Corpuscular Volume 81.8 FL (87-102); Mean Platelet Volume 9.7 FL (9.6-12.0); Neutrophils % 82.4 % (38.7-73.9); Platelet Count 408 T/CUMM (130-400); Red Blood Count 3.25 MC/CUMM (3.8-5.5); Red Cell Distribution Width 22.5 % (9.3-17.3); White Blood Count 8.6 T/CUMM (4-12)
[2020-01-16 10:02] LABS: Hypochromasia 2+; Microcytosis 1+; Ovalocytes Slight; Platelet Estimate Adequate
[2020-01-16] MEDS: ONDANSETRON 4 MG/2 ML VIAL IV PRN (10:04)
[2020-01-16 10:13] LABS: Albumin 2.8 G/DL (3.4-5.0); Bilirubin,Total 0.9 MG/DL (0.2-1.0); Calcium 8.8 MG/DL (8.5-10.1); Osmolality,Calculated 275.4 MOS/KG (273-304); Total Protein 6.3 G/DL (6.4-8.3); Uric Acid 2.6 MG/DL (2.6-6.0)
[2020-01-16] MEDS: DEXTROSE 5% NACL 0.45% 1,000 ML IV SCH ×2 (10:21→21:00)
[2020-01-16] MEDS: METOPROLOL TARTRATE 50 MG TABLET PO SCH ×2 (10:25→20:58)
[2020-01-16] MEDS: DILTIAZEM CD 180 MG CAPSULE PO SCH (10:25)
[2020-01-16] MEDS: DOCUSATE SODIUM 100 MG CAPSULE PO SCH ×2 (10:25→20:58)
[2020-01-16] MEDS: THIAMINE 100 MG TABLET PO SCH (10:25)
[2020-01-16] MEDS: fentaNYL 50 MCG/HR PATCH TRANSDERM SCH (10:25)
[2020-01-16] MEDS: amLODIPine 5 MG TABLET PO SCH (10:25)
[2020-01-16] MEDS: PYRIDOXINE 50 MG TABLET PO SCH (10:26)
[2020-01-16] MEDS ORDERED: FOSAPREPITANT 150 MG in SODIUM CHLORIDE 0.9% 100 ML IV ONE (11:00)
[2020-01-16] MEDS: PALONOSETRON 0.25 MG/5 ML VIAL IV SCH (12:13)
[2020-01-16] MEDS: DEXAMETHASONE 10 MG/1 ML VIAL IV SCH (12:13)
[2020-01-16] MEDS: IFOSFAMIDE IV SCH (13:16)
[2020-01-16] MEDS: MESNA IV SCH (13:16)
[2020-01-16] MEDS: SODIUM CHLORIDE 0.9% IV SCH ×2 (13:16→13:17)
[2020-01-16] MEDS: DOXORUBICIN IV SCH (13:17)
[2020-01-16 22:03] LABS: Bilirubin,Urine Negative (Negative); Blood, Urine NEGATIVE (Negative); Glucose,Urine (UA) 500 mg/dL (Negative); Ketones,Urine 100 mg/dL (Negative); Nitrite,Urine Negative (Negative); Protein,Urine Negative; RBC,Urine <1 /HPF (0-4); Squamous Epithelial Cell,Urine Occasional /HPF (0-10); Urine Appearance Clear (Clear); Urine Color Yellow (Yellow); Urine Specific Gravity 1.015 (1.001-1.035); WBC,Urine 1 /HPF (0-6)
[2020-01-17] MEDS: DEXTROSE 5% NACL 0.45% 1,000 ML IV SCH ×3 (04:00→12:40)
[2020-01-17 08:15] LABS: Hematocrit 25.6 VOL% (35.7-47.0); Hemoglobin 7.6 GM/DL (12.0-16.0); Immature Granulocytes % 0.9 %; Immature Granulocytes Absolute 0.08 #; Lymphocytes # 0.7 10*3/uL (1.4-4.0); Lymphocytes % 7.3 % (21.3-54.2); Mean Corpuscular HGB Conc 29.7 GM/DL (32-36); Mean Corpuscular Volume 82.6 FL (87-102); Mean Platelet Volume 9.2 FL (9.6-12.0); Monocytes % 3.1 % (1.7-12.7); Neutrophils % 88.7 % (38.7-73.9); Platelet Count 475 T/CUMM (130-400); Red Cell Distribution Width 22.8 % (9.3-17.3); White Blood Count 9.3 T/CUMM (4-12)
[2020-01-17 08:33] LABS: Hypochromasia 2+; Platelet Estimate Adequate
[2020-01-17 08:34] LABS: Microcytosis 1+
[2020-01-17] MEDS: PALONOSETRON 0.25 MG/5 ML VIAL IV SCH (08:45)
[2020-01-17] MEDS: DEXAMETHASONE 10 MG/1 ML VIAL IV SCH (08:45)
[2020-01-17] MEDS: DOCUSATE SODIUM 100 MG CAPSULE PO SCH ×2 (08:46→21:07)
[2020-01-17] MEDS: METOPROLOL TARTRATE 50 MG TABLET PO SCH ×2 (08:46→21:08)
[2020-01-17] MEDS: PYRIDOXINE 50 MG TABLET PO SCH (08:46)
[2020-01-17] MEDS: THIAMINE 100 MG TABLET PO SCH (08:46)
[2020-01-17] MEDS: amLODIPine 5 MG TABLET PO SCH (08:46)
[2020-01-17] MEDS: DILTIAZEM CD 180 MG CAPSULE PO SCH (08:47)
[2020-01-17 09:28] LABS: Alanine Aminotransferase 11 U/L (13-56); Albumin 2.5 G/DL (3.4-5.0); Alkaline Phosphatase 113 U/L (45-117); Aspartate Amino Transferase 13 U/L (0-37); Bilirubin,Total < 0.39 MG/DL (0.2-1.0); Blood Urea Nitrogen 5 MG/DL (7-18); Calcium 8.3 MG/DL (8.5-10.1); Estimated Glom Filtration Rate 102 ML/MIN; Glucose 195 MG/DL (74-106); Osmolality,Calculated 276.7 MOS/KG (273-304); Total Protein 5.9 G/DL (6.4-8.3)
[2020-01-17] MEDS: APIXABAN 5 MG TABLET PO SCH ×2 (09:58→21:08)
[2020-01-17 11:48] LABS: Bilirubin,Urine Negative (Negative); Blood, Urine Negative (Negative); Glucose,Urine (UA) >=500 mg/dL (Negative); Ketones,Urine 20 mg/dL (Negative); Mucus,Urine Occasional /LPF (Occasional); Nitrite,Urine Negative (Negative); Protein,Urine Negative; RBC,Urine 1 /HPF (0-4); Squamous Epithelial Cell,Urine Occasional /HPF (0-10); Urine Appearance CLEAR (Clear); Urine Color Yellow (Yellow); Urine Specific Gravity 1.009 (1.001-1.035); WBC,Urine <1 /HPF (0-6)
[2020-01-17] MEDS: DOXORUBICIN IV SCH (14:29)
[2020-01-17] MEDS: SODIUM CHLORIDE 0.9% IV SCH ×2 (14:29→17:13)
[2020-01-17] MEDS: MESNA IV SCH (17:13)
[2020-01-17] MEDS: IFOSFAMIDE IV SCH (17:13)
[2020-01-18] MEDS: DEXTROSE 5% NACL 0.45% 1,000 ML IV SCH ×2 (01:46→14:49)
[2020-01-18 06:25] LABS: Hematocrit 20.9 VOL% (35.7-47.0); Immature Granulocytes % 0.5 %; Immature Granulocytes Absolute 0.05 #; Lymphocytes # 0.5 10*3/uL (1.4-4.0); Lymphocytes % 5.2 % (21.3-54.2); Mean Corpuscular HGB Conc 29.7 GM/DL (32-36); Mean Corpuscular Volume 83.6 FL (87-102); Mean Platelet Volume 8.6 FL (9.6-12.0); Monocytes % 6.3 % (1.7-12.7); Platelet Count 404 T/CUMM (130-400); Red Cell Distribution Width 22.7 % (9.3-17.3)
[2020-01-18 06:31] LABS: Hemoglobin 6.2 GM/DL (12.0-16.0)
[2020-01-18 06:41] LABS: Alanine Aminotransferase < 6 U/L (13-56); Albumin 1.8 G/DL (3.4-5.0); Alkaline Phosphatase 78 U/L (45-117); Aspartate Amino Transferase 9 U/L (0-37); Bilirubin,Total < 0.39 MG/DL (0.2-1.0); Blood Urea Nitrogen 4 MG/DL (7-18); Calcium 6.6 MG/DL (8.5-10.1); Estimated Glom Filtration Rate 134 ML/MIN; Glucose 90 MG/DL (74-106); Osmolality,Calculated 286.6 MOS/KG (273-304); Total Protein 4.2 G/DL (6.4-8.3)
[2020-01-18 06:47] LABS: Hypochromasia 1+; Platelet Estimate Adequate
[2020-01-18 06:48] LABS: Microcytosis Slight; Ovalocytes Slight
[2020-01-18] MEDS ORDERED: POTASSIUM CHLORIDE RIDER 20 MEQ in PREMIX 1 EACH IV PRN (07:34)
[2020-01-18] MEDS ORDERED: POTASSIUM CHLORIDE RIDER 10 MEQ in PREMIX 1 EACH IV PRN ×2 (07:34→07:35)
[2020-01-18] MEDS ORDERED: SODIUM CHLORIDE 0.9% 1,000 ML IV PRN (07:38)
[2020-01-18] MEDS: THIAMINE 100 MG TABLET PO SCH (08:45)
[2020-01-18] MEDS: PYRIDOXINE 50 MG TABLET PO SCH (08:45)
[2020-01-18] MEDS: DOCUSATE SODIUM 100 MG CAPSULE PO SCH ×2 (08:45→20:56)
[2020-01-18] MEDS: DILTIAZEM CD 180 MG CAPSULE PO SCH (08:46)
[2020-01-18] MEDS: amLODIPine 5 MG TABLET PO SCH (08:46)
[2020-01-18] MEDS: PALONOSETRON 0.25 MG/5 ML VIAL IV SCH (08:46)
[2020-01-18] MEDS: METOPROLOL TARTRATE 50 MG TABLET PO SCH ×2 (08:46→20:56)
[2020-01-18] MEDS: DEXAMETHASONE 10 MG/1 ML VIAL IV SCH (08:46)
[2020-01-18 12:32] LABS: Bilirubin,Urine Negative (Negative); Blood, Urine Negative (Negative); Glucose,Urine (UA) 50 mg/dL (Negative); Ketones,Urine 20 mg/dL (Negative); Mucus,Urine Occasional /LPF (Occasional); Nitrite,Urine Negative (Negative); Protein,Urine Negative; RBC,Urine 1 /HPF (0-4); Squamous Epithelial Cell,Urine Occasional /HPF (0-10); Urine Appearance CLEAR (Clear); Urine Color Yellow (Yellow); Urine Urobilinogen < 2.0 EU/DL (0.2-1.0); WBC,Urine <1 /HPF (0-6)
[2020-01-18] MEDS: POTASSIUM CHLORIDE 20 MEQ TABLET PO PRN ×2 (12:40→14:55)
[2020-01-18] MEDS: ONDANSETRON 4 MG/2 ML VIAL IV PRN (16:22)
[2020-01-18] MEDS: POTASSIUM CHLORIDE 20 MEQ TABLET PO SCH ×2 (17:56→21:00)
[2020-01-18] MEDS: oxyCODONE/ACETAMINOPHEN 5-325 MG TABLET PO PRN (20:55)
[2020-01-18] MEDS: MESNA IV SCH (23:22)
[2020-01-18] MEDS: SODIUM CHLORIDE 0.9% IV SCH (23:22)
[2020-01-18] MEDS: IFOSFAMIDE IV SCH (23:22)
[2020-01-19 05:42] LABS: Hematocrit 35.6 VOL% (35.7-47.0); Immature Granulocytes % 0.4 %; Immature Granulocytes Absolute 0.04 #; Lymphocytes # 0.5 10*3/uL (1.4-4.0); Mean Corpuscular HGB Conc 30.6 GM/DL (32-36); Mean Corpuscular Volume 83.2 FL (87-102); Mean Platelet Volume 8.8 FL (9.6-12.0); Monocytes % 6.9 % (1.7-12.7); Neutrophils % 87.7 % (38.7-73.9); Red Cell Distribution Width 20.3 % (9.3-17.3)
[2020-01-19 06:06] LABS: Albumin 2.5 G/DL (3.4-5.0); Bilirubin,Total 1.1 MG/DL (0.2-1.0); Calcium 8.8 MG/DL (8.5-10.1); Osmolality,Calculated 277.3 MOS/KG (273-304); Total Protein 5.8 G/DL (6.4-8.3)
[2020-01-19 06:08] LABS: Hemoglobin 10.9 GM/DL (12.0-16.0); Platelet Count 516 T/CUMM (130-400); Red Blood Count 4.28 MC/CUMM (3.8-5.5)
[2020-01-19] MEDS: PALONOSETRON 0.25 MG/5 ML VIAL IV SCH (08:25)
[2020-01-19] MEDS: METOPROLOL TARTRATE 50 MG TABLET PO SCH ×2 (08:25→21:19)
[2020-01-19] MEDS: THIAMINE 100 MG TABLET PO SCH (08:25)
[2020-01-19] MEDS: DEXAMETHASONE 10 MG/1 ML VIAL IV SCH (08:25)
[2020-01-19] MEDS: POTASSIUM CHLORIDE 20 MEQ TABLET PO SCH (08:25)
[2020-01-19] MEDS: DOCUSATE SODIUM 100 MG CAPSULE PO SCH ×2 (08:25→21:19)
[2020-01-19] MEDS: PYRIDOXINE 50 MG TABLET PO SCH (08:26)
[2020-01-19] MEDS: oxyCODONE/ACETAMINOPHEN 5-325 MG TABLET PO PRN ×2 (08:26→18:50)
[2020-01-19] MEDS: amLODIPine 5 MG TABLET PO SCH (08:26)
[2020-01-19] MEDS: DILTIAZEM CD 180 MG CAPSULE PO SCH (08:26)
[2020-01-19] MEDS ORDERED: POTASSIUM CHLORIDE 20 MEQ TABLET PO SCH (09:00)
[2020-01-19] MEDS: fentaNYL 50 MCG/HR PATCH TRANSDERM SCH (10:44)
[2020-01-19] MEDS ORDERED: SODIUM CHLORIDE 0.9% IV SCH (12:00)
[2020-01-19] MEDS ORDERED: MESNA IV SCH (12:00)
[2020-01-19] MEDS ORDERED: fentaNYL 75 MCG/HR PATCH TRANSDERM SCH (14:25)
[2020-01-19] MEDS: ONDANSETRON 4 MG/2 ML VIAL IV PRN (18:50)
[2020-01-19] MEDS: OLANZapine 5 MG TABLET PO SCH (21:18)
[2020-01-20] MEDS: ALPRAZolam 0.25 MG TABLET PO PRN ×2 (00:32→20:28)
[2020-01-20 06:56] LABS: Hematocrit 36.7 VOL% (35.7-47.0); Hemoglobin 11.4 GM/DL (12.0-16.0); Immature Granulocytes % 0.6 %; Immature Granulocytes Absolute 0.04 #; Lymphocytes # 0.5 10*3/uL (1.4-4.0); Lymphocytes % 7.9 % (21.3-54.2); Mean Corpuscular HGB Conc 31.1 GM/DL (32-36); Mean Corpuscular Volume 82.7 FL (87-102); Mean Platelet Volume 8.7 FL (9.6-12.0); Monocytes % 4.3 % (1.7-12.7); Neutrophils % 87.2 % (38.7-73.9); Platelet Count 566 T/CUMM (130-400); Red Blood Count 4.44 MC/CUMM (3.8-5.5); Red Cell Distribution Width 20.9 % (9.3-17.3); White Blood Count 6.4 T/CUMM (4-12)
[2020-01-20 07:15] LABS: Albumin 2.6 G/DL (3.4-5.0); Bilirubin,Total 1.2 MG/DL (0.2-1.0); Calcium 8.9 MG/DL (8.5-10.1); Osmolality,Calculated 271.8 MOS/KG (273-304); Total Protein 5.8 G/DL (6.4-8.3)
[2020-01-20] MEDS: DEXAMETHASONE 10 MG/1 ML VIAL IV SCH (09:07)
[2020-01-20] MEDS: amLODIPine 5 MG TABLET PO SCH (09:08)
[2020-01-20] MEDS: DILTIAZEM CD 180 MG CAPSULE PO SCH (09:08)
[2020-01-20] MEDS: METOPROLOL TARTRATE 50 MG TABLET PO SCH ×2 (09:08→20:28)
[2020-01-20] MEDS: THIAMINE 100 MG TABLET PO SCH (09:08)
[2020-01-20] MEDS: PYRIDOXINE 50 MG TABLET PO SCH (09:08)
[2020-01-20] MEDS: DOCUSATE SODIUM 100 MG CAPSULE PO SCH ×2 (09:08→20:28)
[2020-01-20] MEDS: PALONOSETRON 0.25 MG/5 ML VIAL IV SCH (09:20)
[2020-01-20] MEDS: OLANZapine 5 MG TABLET PO SCH (20:27)
[2020-01-21] MEDS: ALPRAZolam 0.25 MG TABLET PO PRN (00:12)
[2020-01-21] MEDS: METOPROLOL TARTRATE 50 MG TABLET PO SCH (09:52)
[2020-01-21] MEDS: PYRIDOXINE 50 MG TABLET PO SCH (09:52)
[2020-01-21] MEDS: DEXAMETHASONE 10 MG/1 ML VIAL IV SCH (09:52)
[2020-01-21] MEDS: amLODIPine 5 MG TABLET PO SCH (09:53)
[2020-01-21] MEDS: DILTIAZEM CD 180 MG CAPSULE PO SCH (09:53)
[2020-01-21] MEDS: THIAMINE 100 MG TABLET PO SCH (09:53)
[2020-01-21] MEDS: DOCUSATE SODIUM 100 MG CAPSULE PO SCH (09:53)
[2020-01-21] MEDS: PALONOSETRON 0.25 MG/5 ML VIAL IV SCH (09:54)
[2020-01-21 11:00] LABS: Bacteria,Urine Many /HPF (Few); Bilirubin,Urine Negative (Negative); Blood, Urine Negative (Negative); Glucose,Urine (UA) 50 mg/dL (Negative); Ketones,Urine Negative (Negative); Mucus,Urine Occasional /LPF (Occasional); Nitrite,Urine Negative (Negative); Protein,Urine Negative; Squamous Epithelial Cell,Urine Occasional /HPF (0-10); Urine Appearance CLEAR (Clear); Urine Color Yellow (Yellow); Urine Specific Gravity 1.012 (1.001-1.035); Urine Urobilinogen < 2.0 EU/DL (0.2-1.0); WBC,Urine 2 /HPF (0-6)
[2020-01-21] MEDS ORDERED: HEPARIN LOCK FLUSH 500 UNIT/5 ML SYRINGE IV ONE (13:29)
[2020-01-21 16:10] VITALS: BP 151/99
== END 2020-01-21 16:25 | disposition home health service (06) | DRG 847 ==
LOC: N.4EOUT 07:11 → N.4E 07:20
PROVIDERS: ADMIT Internal Medicine Hematology & Oncology; ATTEND Internal Medicine Hematology & Oncology

== ENCOUNTER 2020-02-13 06:56 | Inpatient (IN) ==
[2020-02-13] MEDS ORDERED: ALUMINUM/MAGNES/SIMETH MAX STR 30 ML UDCUP PO PRN (07:54)
[2020-02-13] MEDS ORDERED: LACTULOSE 20 GM/30 ML UDCUP PO PRN (07:54)
[2020-02-13] MEDS ORDERED: MYLANTA/LIDO VISC 2:1 300 ML BOTTLE SWISH/SPIT PRN (07:54)
[2020-02-13] MEDS ORDERED: MYLANTA/LIDO VISC 2:1 300 ML BOTTLE SWISH/SWAL PRN (07:54)
[2020-02-13] MEDS ORDERED: guaiFENesin 200 MG/10 ML UDCUP PO PRN (07:54)
[2020-02-13] MEDS ORDERED: chlorproMAZINE INJ 50 MG in SODIUM CHLORIDE 0.9% 100 ML IV PRN (07:54)
[2020-02-13] MEDS ORDERED: ONDANSETRON 4 MG/2 ML VIAL IV PRN (07:54)
[2020-02-13] MEDS ORDERED: diphenhydrAMINE CAP 25 MG CAPSULE PO PRN (07:54)
[2020-02-13] MEDS ORDERED: LOPERAMIDE 2 MG CAPSULE PO PRN ×2 (07:54)
[2020-02-13] MEDS ORDERED: traMADol 50 MG TABLET PO PRN (07:54)
[2020-02-13] MEDS ORDERED: MAGNESIUM HYDROXIDE SUSP 30 ML UDCUP PO PRN (07:54)
[2020-02-13] MEDS ORDERED: chlorproMAZINE INJ 25 MG in SODIUM CHLORIDE 0.9% 100 ML IV PRN (07:54)
[2020-02-13] MEDS ORDERED: PROMETHAZINE INJ 25 MG in SODIUM CHLORIDE 0.9% 50 ML IV PRN (07:54)
[2020-02-13] MEDS ORDERED: ACETAMINOPHEN 325 MG TABLET PO PRN (07:54)
[2020-02-13 08:09] LABS: Basophils # 0.1 10*3/uL (0.0-0.2); Basophils % 0.7 % (0.0-0.8); Eosinophils % 0.1 % (0.00-10.9); Hematocrit 31.2 VOL% (35.7-47.0); Hemoglobin 9.7 GM/DL (12.0-16.0); Immature Granulocytes % 0.5 %; Immature Granulocytes Absolute 0.07 #; Lymphocytes # 0.8 10*3/uL (1.4-4.0); Lymphocytes % 5.8 % (21.3-54.2); Mean Corpuscular HGB Conc 31.1 GM/DL (32-36); Mean Corpuscular Volume 80.6 FL (87-102); Mean Platelet Volume 8.5 FL (9.6-12.0); Monocytes % 13.4 % (1.7-12.7); Neutrophils % 79.5 % (38.7-73.9); Platelet Count 482 T/CUMM (130-400); Red Blood Count 3.87 MC/CUMM (3.8-5.5); White Blood Count 13.4 T/CUMM (4-12)
[2020-02-13 08:16] LABS: Bacteria,Urine Occasional /HPF (Few); Bilirubin,Urine Small mg/dL (Negative); Blood, Urine Negative (Negative); Glucose,Urine (UA) Negative (Negative); Ketones,Urine Negative (Negative); Mucus,Urine Many /LPF (Occasional); Nitrite,Urine Negative (Negative); Protein,Urine 30 MG/DL; RBC,Urine 4 /HPF (0-4); Squamous Epithelial Cell,Urine Occasional /HPF (0-10); Urine Appearance Slightly Hazy (Clear); Urine Color Amber (Yellow); Urine Specific Gravity 1.026 (1.001-1.035); WBC,Urine 11 /HPF (0-6)
[2020-02-13] MEDS ORDERED: oxyCODONE/ACETAMINOPHEN 5-325 MG TABLET PO PRN (08:31)
[2020-02-13 08:33] LABS: Alanine Aminotransferase < 9 U/L (13-56); Albumin 2.5 G/DL (3.4-5.0); Alkaline Phosphatase 130 U/L (45-117); Aspartate Amino Transferase 20 U/L (0-37); Blood Urea Nitrogen 6 MG/DL (7-18); Carbon Dioxide 30 MMOL/L (21-32); Estimated Glom Filtration Rate 97 ML/MIN; Glucose 95 MG/DL (74-106); Osmolality,Calculated 267.1 MOS/KG (273-304); Potassium 3.1 MMOL/L (3.5-5.1); Sodium 135 MMOL/L (136-145); Total Protein 6.3 G/DL (6.4-8.3)
[2020-02-13] MEDS ORDERED: MORPHINE 4 MG/1 ML VIAL IV PRN (08:34)
[2020-02-13] MEDS ORDERED: POTASSIUM CHLORIDE 20 MEQ TABLET PO ONE (08:46)
[2020-02-13] MEDS ORDERED: fentaNYL 75 MCG/HR PATCH TRANSDERM SCH (09:00)
[2020-02-13] MEDS ORDERED: DEXAMETHASONE INJ 10 MG in SODIUM CHLORIDE 0.9% 50 ML IV ONE ×2 (09:00)
[2020-02-13] MEDS: PALONOSETRON 0.25 MG/5 ML VIAL IV SCH (09:36)
[2020-02-13] MEDS: APIXABAN 5 MG TABLET PO SCH ×2 (09:36→20:33)
[2020-02-13] MEDS: METOPROLOL TARTRATE 50 MG TABLET PO SCH ×2 (09:37→20:33)
[2020-02-13] MEDS: FOSAPREPITANT 150 MG in SODIUM CHLORIDE 0.9% 100 ML IV SCH (10:10)
[2020-02-13] MEDS: DOXORUBICIN IV SCH (11:54)
[2020-02-13] MEDS: SODIUM CHLORIDE 0.9% IV SCH (11:59)
[2020-02-13] MEDS: MESNA IV SCH (11:59)
[2020-02-13] MEDS: IFOSFAMIDE IV SCH (11:59)
[2020-02-13] MEDS: ALPRAZolam 0.25 MG TABLET PO PRN (20:33)
[2020-02-13] MEDS: oxyCODONE/ACETAMINOPHEN 5-325 MG TABLET PO PRN (20:33)
[2020-02-13] MEDS: OLANZapine 5 MG TABLET PO SCH (20:33)
[2020-02-13] MEDS: TEMAZEPAM 7.5 MG CAPSULE PO PRN (20:33)
[2020-02-14 06:28] LABS: Hematocrit 33.4 VOL% (35.7-47.0); Immature Granulocytes % 0.5 %; Immature Granulocytes Absolute 0.05 #; Lymphocytes # 0.4 10*3/uL (1.4-4.0); Mean Corpuscular HGB Conc 29.9 GM/DL (32-36); Mean Corpuscular Volume 82.9 FL (87-102); Mean Platelet Volume 9.1 FL (9.6-12.0); Monocytes % 2.8 % (1.7-12.7); Neutrophils % 92.7 % (38.7-73.9); Platelet Count 489 T/CUMM (130-400); Red Blood Count 4.03 MC/CUMM (3.8-5.5); Red Cell Distribution Width 18.9 % (9.3-17.3); White Blood Count 9.3 T/CUMM (4-12)
[2020-02-14 06:46] LABS: Alanine Aminotransferase < 9 U/L (13-56); Albumin 2.3 G/DL (3.4-5.0); Alkaline Phosphatase 123 U/L (45-117); Aspartate Amino Transferase 12 U/L (0-37); Bilirubin,Total < 0.39 MG/DL (0.2-1.0); Blood Urea Nitrogen 6 MG/DL (7-18); Calcium 9.2 MG/DL (8.5-10.1); Carbon Dioxide 27 MMOL/L (21-32); Estimated Glom Filtration Rate 108 ML/MIN; Glucose 164 MG/DL (74-106); Potassium 3.7 MMOL/L (3.5-5.1); Sodium 136 MMOL/L (136-145); Total Protein 6.7 G/DL (6.4-8.3)
[2020-02-14 06:48] LABS: Hypochromasia 1+; Lymphocytes 3 % (20-55); Microcytosis 1+; Ovalocytes Slight; Platelet Estimate Adequate; Segmented Neutrophils 93 % (50-85); Total Cells Counted 100
[2020-02-14] MEDS: PALONOSETRON 0.25 MG/5 ML VIAL IV SCH (09:52)
[2020-02-14] MEDS: METOPROLOL TARTRATE 50 MG TABLET PO SCH ×2 (09:53→20:55)
[2020-02-14] MEDS: APIXABAN 5 MG TABLET PO SCH ×2 (09:53→20:55)
[2020-02-14] MEDS: fentaNYL 75 MCG/HR PATCH TRANSDERM SCH (09:54)
[2020-02-14] MEDS: FOSAPREPITANT 150 MG in SODIUM CHLORIDE 0.9% 100 ML IV SCH (16:01)
[2020-02-14] MEDS: DOXORUBICIN IV SCH (16:31)
[2020-02-14] MEDS: IFOSFAMIDE IV SCH (17:30)
[2020-02-14] MEDS: SODIUM CHLORIDE 0.9% IV SCH (17:30)
[2020-02-14] MEDS: MESNA IV SCH (17:30)
[2020-02-14] MEDS: TEMAZEPAM 7.5 MG CAPSULE PO PRN (20:54)
[2020-02-14] MEDS: oxyCODONE/ACETAMINOPHEN 5-325 MG TABLET PO PRN (20:55)
[2020-02-14] MEDS: ALPRAZolam 0.25 MG TABLET PO PRN (20:55)
[2020-02-14] MEDS: OLANZapine 5 MG TABLET PO SCH (20:55)
[2020-02-15 05:56] LABS: Basophils % 0.1 % (0.0-0.8); Hematocrit 31.9 VOL% (35.7-47.0); Hemoglobin 9.6 GM/DL (12.0-16.0); Immature Granulocytes % 0.6 %; Immature Granulocytes Absolute 0.08 #; Lymphocytes # 0.6 10*3/uL (1.4-4.0); Lymphocytes % 4.4 % (21.3-54.2); Mean Corpuscular HGB Conc 30.1 GM/DL (32-36); Mean Corpuscular Volume 83.7 FL (87-102); Mean Platelet Volume 9.3 FL (9.6-12.0); Monocytes % 8.5 % (1.7-12.7); Neutrophils % 86.4 % (38.7-73.9); Platelet Count 522 T/CUMM (130-400); Red Blood Count 3.81 MC/CUMM (3.8-5.5); Red Cell Distribution Width 19.4 % (9.3-17.3); White Blood Count 14.5 T/CUMM (4-12)
[2020-02-15 06:20] LABS: Band Neutrophils 1 % (0-10); Hypochromasia 1+; Lymphocytes 6 % (20-55); Microcytosis 1+; Ovalocytes Slight; Platelet Estimate Adequate; Segmented Neutrophils 86 % (50-85); Total Cells Counted 100
[2020-02-15 07:47] LABS: Alanine Aminotransferase 9 U/L (13-56); Albumin 1.9 G/DL (3.4-5.0); Alkaline Phosphatase 107 U/L (45-117); Aspartate Amino Transferase 11 U/L (0-37); Bilirubin,Total < 0.39 MG/DL (0.2-1.0); Blood Urea Nitrogen 8 MG/DL (7-18); Calcium 8.8 MG/DL (8.5-10.1); Carbon Dioxide 24 MMOL/L (21-32); Estimated Glom Filtration Rate 102 ML/MIN; Glucose 74 MG/DL (74-106); Osmolality,Calculated 277.3 MOS/KG (273-304); Potassium 3.7 MMOL/L (3.5-5.1); Sodium 141 MMOL/L (136-145); Total Protein 5.8 G/DL (6.4-8.3)
[2020-02-15] MEDS: METOPROLOL TARTRATE 50 MG TABLET PO SCH ×2 (09:23→20:15)
[2020-02-15] MEDS: APIXABAN 5 MG TABLET PO SCH ×2 (09:23→20:15)
[2020-02-15] MEDS: PALONOSETRON 0.25 MG/5 ML VIAL IV SCH (09:24)
[2020-02-15] MEDS: FOSAPREPITANT 150 MG in SODIUM CHLORIDE 0.9% 100 ML IV SCH (19:20)
[2020-02-15] MEDS: TEMAZEPAM 7.5 MG CAPSULE PO PRN (20:15)
[2020-02-15] MEDS: ALPRAZolam 0.25 MG TABLET PO PRN (20:15)
[2020-02-15] MEDS: OLANZapine 5 MG TABLET PO SCH (20:15)
[2020-02-15] MEDS: oxyCODONE/ACETAMINOPHEN 5-325 MG TABLET PO PRN (20:16)
[2020-02-15] MEDS: MESNA IV SCH (20:17)
[2020-02-15] MEDS: SODIUM CHLORIDE 0.9% IV SCH (20:17)
[2020-02-15] MEDS: IFOSFAMIDE IV SCH (20:17)
[2020-02-16] MEDS: oxyCODONE/ACETAMINOPHEN 5-325 MG TABLET PO PRN (04:30)
[2020-02-16 04:58] LABS: Basophils % 0.1 % (0.0-0.8); Hematocrit 32.1 VOL% (35.7-47.0); Hemoglobin 9.7 GM/DL (12.0-16.0); Immature Granulocytes % 0.7 %; Immature Granulocytes Absolute 0.11 #; Lymphocytes # 0.7 10*3/uL (1.4-4.0); Lymphocytes % 4.7 % (21.3-54.2); Mean Corpuscular HGB Conc 30.2 GM/DL (32-36); Mean Corpuscular Volume 82.5 FL (87-102); Mean Platelet Volume 9.2 FL (9.6-12.0); Monocytes % 3.6 % (1.7-12.7); Neutrophils % 90.9 % (38.7-73.9); Platelet Count 495 T/CUMM (130-400); Red Blood Count 3.89 MC/CUMM (3.8-5.5); White Blood Count 15.5 T/CUMM (4-12)
[2020-02-16 05:20] LABS: Albumin 1.8 G/DL (3.4-5.0); Bilirubin,Total 0.5 MG/DL (0.2-1.0); Calcium 8.8 MG/DL (8.5-10.1); Osmolality,Calculated 286.7 MOS/KG (273-304); Potassium 3.5 MMOL/L (3.5-5.1); Total Protein 5.4 G/DL (6.4-8.3)
[2020-02-16 05:23] LABS: Hypochromasia Slight; Lymphocytes 1 % (20-55); Microcytosis Slight; Platelet Estimate Increased; Segmented Neutrophils 97 % (50-85); Total Cells Counted 100
[2020-02-16] MEDS: PALONOSETRON 0.25 MG/5 ML VIAL IV SCH (08:32)
[2020-02-16] MEDS: METOPROLOL TARTRATE 50 MG TABLET PO SCH ×2 (08:33→20:15)
[2020-02-16] MEDS: APIXABAN 5 MG TABLET PO SCH ×2 (08:33→20:15)
[2020-02-16] MEDS ORDERED: SODIUM CHLORIDE 0.9% IV SCH (09:00)
[2020-02-16] MEDS ORDERED: MESNA IV SCH (09:00)
[2020-02-16] MEDS: PIPERACILLIN/TAZOBACTAM 3,375 MG in SODIUM CHLORIDE 0.9% 100 ML IV SCH ×2 (13:56→20:19)
[2020-02-16] MEDS ORDERED: SODIUM CHLORIDE 0.9% 250 ML IV ONE (16:14)
[2020-02-16 16:19] LABS: Bacteria,Urine Occasional /HPF (Few); Bilirubin,Urine Negative (Negative); Blood, Urine Negative (Negative); Glucose,Urine (UA) 50 mg/dL (Negative); Ketones,Urine 80 mg/dL (Negative); Mucus,Urine Occasional /LPF (Occasional); Nitrite,Urine Negative (Negative); Protein,Urine Negative; RBC,Urine 1 /HPF (0-4); Squamous Epithelial Cell,Urine Occasional /HPF (0-10); Urine Appearance CLEAR (Clear); Urine Color Yellow (Yellow); Urine Specific Gravity 1.019 (1.001-1.035); Urine Urobilinogen < 2.0 EU/DL (0.2-1.0); WBC,Urine 6 /HPF (0-6)
[2020-02-16] MEDS: OLANZapine 5 MG TABLET PO SCH (20:16)
[2020-02-16] MEDS: TEMAZEPAM 7.5 MG CAPSULE PO PRN (20:16)
[2020-02-16] MEDS: ALPRAZolam 0.25 MG TABLET PO PRN (20:16)
[2020-02-17] MEDS: PIPERACILLIN/TAZOBACTAM 3,375 MG in SODIUM CHLORIDE 0.9% 100 ML IV SCH ×3 (03:03→20:44)
[2020-02-17 06:19] LABS: Basophils % 0.1 % (0.0-0.8); Hematocrit 29.1 VOL% (35.7-47.0); Hemoglobin 8.7 GM/DL (12.0-16.0); Immature Granulocytes % 1.3 %; Immature Granulocytes Absolute 0.27 #; Lymphocytes # 0.4 10*3/uL (1.4-4.0); Lymphocytes % 2.1 % (21.3-54.2); Mean Corpuscular HGB Conc 29.9 GM/DL (32-36); Mean Corpuscular Volume 82.2 FL (87-102); Mean Platelet Volume 8.9 FL (9.6-12.0); Monocytes % 0.8 % (1.7-12.7); Neutrophils % 95.7 % (38.7-73.9); Platelet Count 407 T/CUMM (130-400); Red Blood Count 3.54 MC/CUMM (3.8-5.5); Red Cell Distribution Width 20.9 % (9.3-17.3); White Blood Count 21.1 T/CUMM (4-12)
[2020-02-17 06:51] LABS: Alanine Aminotransferase < 9 U/L (13-56); Albumin 1.7 G/DL (3.4-5.0); Alkaline Phosphatase 96 U/L (45-117); Aspartate Amino Transferase 12 U/L (0-37); Blood Urea Nitrogen 11 MG/DL (7-18); Calcium 8.3 MG/DL (8.5-10.1); Carbon Dioxide 21 MMOL/L (21-32); Estimated Glom Filtration Rate 102 ML/MIN; Glucose 85 MG/DL (74-106); Osmolality,Calculated 280.1 MOS/KG (273-304); Potassium 3.3 MMOL/L (3.5-5.1); Sodium 142 MMOL/L (136-145); Total Protein 5.3 G/DL (6.4-8.3)
[2020-02-17 06:53] LABS: Band Neutrophils 1 % (0-10); Hypochromasia 1+; Lymphocytes 3 % (20-55); Microcytosis 1+; Ovalocytes Slight; Segmented Neutrophils 95 % (50-85); Total Cells Counted 100
[2020-02-17] MEDS: METOPROLOL TARTRATE 50 MG TABLET PO SCH ×2 (10:05→20:42)
[2020-02-17] MEDS: APIXABAN 5 MG TABLET PO SCH ×2 (10:05→20:42)
[2020-02-17] MEDS: fentaNYL 75 MCG/HR PATCH TRANSDERM SCH (10:08)
[2020-02-17] MEDS: PALONOSETRON 0.25 MG/5 ML VIAL IV SCH (11:06)
[2020-02-17] MEDS: TEMAZEPAM 7.5 MG CAPSULE PO PRN (20:42)
[2020-02-17] MEDS: ALPRAZolam 0.25 MG TABLET PO PRN (20:42)
[2020-02-17] MEDS: OLANZapine 5 MG TABLET PO SCH (20:43)
[2020-02-18] MEDS: PIPERACILLIN/TAZOBACTAM 3,375 MG in SODIUM CHLORIDE 0.9% 100 ML IV SCH ×2 (03:02→13:15)
[2020-02-18 06:40] LABS: Basophils % 0.2 % (0.0-0.8); Eosinophils % 0.2 % (0.00-10.9); Hemoglobin 7.9 GM/DL (12.0-16.0); Immature Granulocytes % 1.4 %; Immature Granulocytes Absolute 0.18 #; Lymphocytes # 0.3 10*3/uL (1.4-4.0); Lymphocytes % 2.2 % (21.3-54.2); Mean Corpuscular HGB Conc 30.4 GM/DL (32-36); Mean Corpuscular Volume 81.8 FL (87-102); Mean Platelet Volume 9.7 FL (9.6-12.0); Monocytes % 0.5 % (1.7-12.7); Neutrophils % 95.5 % (38.7-73.9); Platelet Count 390 T/CUMM (130-400); Red Blood Count 3.18 MC/CUMM (3.8-5.5); Red Cell Distribution Width 20.8 % (9.3-17.3)
[2020-02-18 08:42] LABS: Alanine Aminotransferase < 9 U/L (13-56); Albumin 1.9 G/DL (3.4-5.0); Alkaline Phosphatase 93 U/L (45-117); Aspartate Amino Transferase 14 U/L (0-37); Blood Urea Nitrogen 8 MG/DL (7-18); Calcium 8.4 MG/DL (8.5-10.1); Carbon Dioxide 19 MMOL/L (21-32); Estimated Glom Filtration Rate 83 ML/MIN; Glucose 115 MG/DL (74-106); Osmolality,Calculated 277.4 MOS/KG (273-304); Potassium 2.9 MMOL/L (3.5-5.1); Sodium 140 MMOL/L (136-145); Total Protein 5.7 G/DL (6.4-8.3)
[2020-02-18] MEDS: APIXABAN 5 MG TABLET PO SCH (09:02)
[2020-02-18] MEDS: METOPROLOL TARTRATE 50 MG TABLET PO SCH (09:02)
[2020-02-18 09:25] LABS: Hypochromasia 3+; Lymphocytes 1 % (20-55); Microcytosis 1+; Segmented Neutrophils 99 % (50-85); Total Cells Counted 100
[2020-02-18 09:26] LABS: Elliptocytes Few; Ovalocytes Few; Platelet Estimate Normal
[2020-02-18] MEDS: PALONOSETRON 0.25 MG/5 ML VIAL IV SCH (09:29)
[2020-02-18 11:54] VITALS: BP 119/82
== END 2020-02-18 16:05 | disposition home or self-care (01) | DRG 847 ==
LOC: N.4EOUT 06:56 → N.4E 07:03
PROVIDERS: ADMIT Internal Medicine Hematology & Oncology; ATTEND Internal Medicine Hematology & Oncology

== ENCOUNTER 2020-03-10 07:44 | Inpatient (IN) ==
[2020-03-10] MEDS ORDERED: chlorproMAZINE INJ 50 MG in SODIUM CHLORIDE 0.9% 100 ML IV PRN (08:51)
[2020-03-10] MEDS ORDERED: MYLANTA/LIDO VISC 2:1 300 ML BOTTLE SWISH/SWAL PRN (08:51)
[2020-03-10] MEDS ORDERED: BENZTROPINE 2 MG/2 ML AMP IV PRN (08:51)
[2020-03-10] MEDS ORDERED: ALUMINUM/MAGNES/SIMETH MAX STR 30 ML UDCUP PO PRN (08:51)
[2020-03-10] MEDS ORDERED: traMADol 50 MG TABLET PO PRN (08:51)
[2020-03-10] MEDS ORDERED: ALPRAZolam 0.25 MG TABLET PO PRN (08:51)
[2020-03-10] MEDS ORDERED: MYLANTA/LIDO VISC 2:1 300 ML BOTTLE SWISH/SPIT PRN (08:51)
[2020-03-10] MEDS ORDERED: guaiFENesin 200 MG/10 ML UDCUP PO PRN (08:51)
[2020-03-10] MEDS ORDERED: ONDANSETRON 4 MG/2 ML VIAL IV PRN (08:51)
[2020-03-10] MEDS ORDERED: diphenhydrAMINE CAP 25 MG CAPSULE PO PRN (08:51)
[2020-03-10] MEDS ORDERED: LACTULOSE 20 GM/30 ML UDCUP PO PRN (08:51)
[2020-03-10] MEDS ORDERED: MAGNESIUM HYDROXIDE SUSP 30 ML UDCUP PO PRN (08:51)
[2020-03-10] MEDS ORDERED: chlorproMAZINE INJ 25 MG in SODIUM CHLORIDE 0.9% 100 ML IV PRN (08:51)
[2020-03-10] MEDS ORDERED: TEMAZEPAM 7.5 MG CAPSULE PO PRN (08:51)
[2020-03-10] MEDS ORDERED: PROMETHAZINE INJ 25 MG in SODIUM CHLORIDE 0.9% 50 ML IV PRN (08:51)
[2020-03-10] MEDS ORDERED: ACETAMINOPHEN 325 MG TABLET PO PRN (08:51)
[2020-03-10] MEDS ORDERED: LOPERAMIDE 2 MG CAPSULE PO PRN ×2 (08:51)
[2020-03-10] MEDS ORDERED: chlorproMAZINE 25 MG TABLET PO PRN (08:51)
[2020-03-10] MEDS ORDERED: FOSAPREPITANT 150 MG in SODIUM CHLORIDE 0.9% 100 ML IV ONE (09:00)
[2020-03-10 09:29] LABS: Basophils # 0.1 10*3/uL (0.0-0.2); Basophils % 1.3 % (0.0-0.8); Eosinophils % 0.2 % (0.00-10.9); Hematocrit 24.7 VOL% (35.7-47.0); Hemoglobin 7.3 GM/DL (12.0-16.0); Immature Granulocytes % 0.5 %; Immature Granulocytes Absolute 0.03 #; Lymphocytes # 0.8 10*3/uL (1.4-4.0); Lymphocytes % 11.7 % (21.3-54.2); Mean Corpuscular HGB Conc 29.6 GM/DL (32-36); Mean Platelet Volume 8.8 FL (9.6-12.0); Monocytes % 10.9 % (1.7-12.7); Neutrophils % 75.4 % (38.7-73.9); Platelet Count 374 T/CUMM (130-400); Red Blood Count 2.94 MC/CUMM (3.8-5.5); Red Cell Distribution Width 22.1 % (9.3-17.3); White Blood Count 6.4 T/CUMM (4-12)
[2020-03-10 09:51] LABS: Hypochromasia 2+
[2020-03-10 09:52] LABS: Anisocytosis 1+; Microcytosis 1+; Platelet Estimate Normal
[2020-03-10 09:58] LABS: Albumin 2.6 G/DL (3.4-5.0); Bilirubin,Total 0.4 MG/DL (0.2-1.0); Calcium 8.5 MG/DL (8.5-10.1); Osmolality,Calculated 277.4 MOS/KG (273-304); Total Protein 5.3 G/DL (6.4-8.3); Uric Acid 2.3 MG/DL (2.6-6.0)
[2020-03-10] MEDS ORDERED: IFOSFAMIDE IV SCH (10:00)
[2020-03-10] MEDS ORDERED: MESNA IV SCH (10:00)
[2020-03-10] MEDS ORDERED: SODIUM CHLORIDE 0.9% IV SCH (10:00)
[2020-03-10] MEDS: PALONOSETRON 0.25 MG/5 ML VIAL IV SCH (10:59)
[2020-03-10] MEDS: DEXAMETHASONE 10 MG/1 ML VIAL IV SCH (10:59)
[2020-03-10] MEDS ORDERED: oxyCODONE/ACETAMINOPHEN 5-325 MG TABLET PO PRN (11:46)
[2020-03-10] MEDS ORDERED: MORPHINE 4 MG/1 ML VIAL IV PRN (11:50)
[2020-03-10] MEDS: DOXORUBICIN IV SCH (12:00)
[2020-03-10] MEDS: SODIUM CHLORIDE 0.9% IV SCH ×2 (12:00→12:13)
[2020-03-10] MEDS: MESNA IV SCH (12:13)
[2020-03-10] MEDS: IFOSFAMIDE IV SCH (12:13)
[2020-03-10] MEDS ORDERED: POTASSIUM CHLORIDE 20 MEQ TABLET PO ONE (13:00)
[2020-03-10] MEDS: ALBUMIN 25% 25 GM in PREMIX 1 EACH IV SCH (14:53)
[2020-03-10] MEDS: fentaNYL 75 MCG/HR PATCH TRANSDERM SCH (14:54)
[2020-03-10 16:00] LABS: Bilirubin,Urine Negative (Negative); Blood, Urine Negative (Negative); Glucose,Urine (UA) 50 mg/dL (Negative); Ketones,Urine 20 mg/dL (Negative); Mucus,Urine Few /LPF (Occasional); Nitrite,Urine Negative (Negative); Protein,Urine Negative; Squamous Epithelial Cell,Urine Occasional /HPF (0-10); Urine Appearance CLEAR (Clear); Urine Color Yellow (Yellow); Urine Specific Gravity 1.016 (1.001-1.035); Urine Urobilinogen < 2.0 EU/DL (0.2-1.0); WBC,Urine 2 /HPF (0-6)
[2020-03-10] MEDS: OLANZapine 5 MG TABLET PO SCH (20:52)
[2020-03-11] MEDS: APIXABAN 5 MG TABLET PO SCH ×2 (13:17→20:50)
[2020-03-11] MEDS: PALONOSETRON 0.25 MG/5 ML VIAL IV SCH (13:17)
[2020-03-11] MEDS: DEXAMETHASONE 10 MG/1 ML VIAL IV SCH (13:17)
[2020-03-11] MEDS: ALBUMIN 25% 25 GM in PREMIX 1 EACH IV SCH (14:54)
[2020-03-11] MEDS: SODIUM CHLORIDE 0.9% IV SCH ×2 (17:06→17:07)
[2020-03-11] MEDS: DOXORUBICIN IV SCH (17:06)
[2020-03-11] MEDS: MESNA IV SCH (17:07)
[2020-03-11] MEDS: IFOSFAMIDE IV SCH (17:07)
[2020-03-11] MEDS: OLANZapine 5 MG TABLET PO SCH (20:52)
[2020-03-12 06:13] LABS: Bilirubin,Total 0.6 MG/DL (0.2-1.0); Calcium 8.5 MG/DL (8.5-10.1); Osmolality,Calculated 278.3 MOS/KG (273-304); Total Protein 5.6 G/DL (6.4-8.3)
[2020-03-12 06:17] LABS: Basophils % 0.1 % (0.0-0.8); Hematocrit 22.8 VOL% (35.7-47.0); Hemoglobin 6.8 GM/DL (12.0-16.0); Immature Granulocytes % 0.8 %; Immature Granulocytes Absolute 0.09 #; Lymphocytes # 0.4 10*3/uL (1.4-4.0); Lymphocytes % 3.4 % (21.3-54.2); Mean Corpuscular HGB Conc 29.8 GM/DL (32-36); Mean Corpuscular Volume 84.8 FL (87-102); Mean Platelet Volume 9.5 FL (9.6-12.0); Monocytes % 6.3 % (1.7-12.7); Neutrophils % 89.4 % (38.7-73.9); Platelet Count 356 T/CUMM (130-400); Red Blood Count 2.69 MC/CUMM (3.8-5.5); Red Cell Distribution Width 22.4 % (9.3-17.3); White Blood Count 11.2 T/CUMM (4-12)
[2020-03-12 06:38] LABS: Band Neutrophils 2 % (0-10); Hypochromasia 2+; Lymphocytes 3 % (20-55); Microcytosis 1+; Platelet Estimate Normal; Segmented Neutrophils 91 % (50-85); Total Cells Counted 100
[2020-03-12 08:07] LABS: Bacteria,Urine Occasional /HPF (Few); Bilirubin,Urine Negative (Negative); Blood, Urine Negative (Negative); Glucose,Urine (UA) >=500 mg/dL (Negative); Ketones,Urine 80 mg/dL (Negative); Mucus,Urine Occasional /LPF (Occasional); Nitrite,Urine Negative (Negative); Protein,Urine Negative; RBC,Urine 2 /HPF (0-4); Squamous Epithelial Cell,Urine Occasional /HPF (0-10); Urine Appearance CLEAR (Clear); Urine Color Yellow (Yellow); Urine Specific Gravity 1.011 (1.001-1.035); Urine Urobilinogen < 2.0 EU/DL (0.2-1.0); WBC,Urine 4 /HPF (0-6)
[2020-03-12] MEDS ORDERED: FOSAPREPITANT 150 MG in SODIUM CHLORIDE 0.9% 100 ML IV ONE (09:00)
[2020-03-12] MEDS ORDERED: SODIUM CHLORIDE 0.9% 1,000 ML IV PRN (09:22)
[2020-03-12] MEDS: ALBUMIN 25% 25 GM in PREMIX 1 EACH IV SCH (09:31)
[2020-03-12] MEDS: APIXABAN 5 MG TABLET PO SCH ×2 (09:34→20:27)
[2020-03-12] MEDS: DEXAMETHASONE 10 MG/1 ML VIAL IV SCH (09:35)
[2020-03-12] MEDS: PALONOSETRON 0.25 MG/5 ML VIAL IV SCH (09:35)
[2020-03-12] MEDS: MESNA IV SCH (18:00)
[2020-03-12] MEDS: SODIUM CHLORIDE 0.9% IV SCH (18:00)
[2020-03-12] MEDS: IFOSFAMIDE IV SCH (18:00)
[2020-03-12] MEDS: OLANZapine 5 MG TABLET PO SCH (20:27)
[2020-03-13 05:36] LABS: Basophils % 0.1 % (0.0-0.8); Hematocrit 36.3 VOL% (35.7-47.0); Immature Granulocytes % 0.5 %; Immature Granulocytes Absolute 0.04 #; Lymphocytes # 0.2 10*3/uL (1.4-4.0); Mean Corpuscular HGB Conc 31.4 GM/DL (32-36); Mean Corpuscular Volume 86.8 FL (87-102); Mean Platelet Volume 9.3 FL (9.6-12.0); Monocytes % 2.2 % (1.7-12.7); Neutrophils % 95.2 % (38.7-73.9); Platelet Count 298 T/CUMM (130-400); Red Cell Distribution Width 18.9 % (9.3-17.3); White Blood Count 8.7 T/CUMM (4-12)
[2020-03-13 05:39] LABS: Hemoglobin 11.4 GM/DL (12.0-16.0); Red Blood Count 4.18 MC/CUMM (3.8-5.5)
[2020-03-13 06:02] LABS: Albumin 3.2 G/DL (3.4-5.0); Bilirubin,Total 0.5 MG/DL (0.2-1.0); Calcium 8.6 MG/DL (8.5-10.1); Osmolality,Calculated 276.4 MOS/KG (273-304)
[2020-03-13 06:22] LABS: Hypochromasia 1+; Lymphocytes 1 % (20-55); Microcytosis 1+; Segmented Neutrophils 97 % (50-85); Total Cells Counted 100
[2020-03-13 06:24] LABS: Platelet Estimate Normal; Polychromasia Slight; Tear Drop Cells Slight
[2020-03-13] MEDS ORDERED: SODIUM CHLORIDE 0.9% IV SCH (09:00)
[2020-03-13] MEDS ORDERED: MESNA IV SCH (09:00)
[2020-03-13] MEDS: METOPROLOL SUCCINATE XL 50 MG TABLET PO SCH (09:48)
[2020-03-13] MEDS: APIXABAN 5 MG TABLET PO SCH ×2 (09:48→20:07)
[2020-03-13] MEDS: fentaNYL 75 MCG/HR PATCH TRANSDERM SCH (09:49)
[2020-03-13] MEDS: DEXAMETHASONE 10 MG/1 ML VIAL IV SCH (09:52)
[2020-03-13] MEDS: PALONOSETRON 0.25 MG/5 ML VIAL IV SCH (09:56)
[2020-03-13] MEDS: OLANZapine 5 MG TABLET PO SCH (20:07)
[2020-03-13] MEDS: ALBUMIN 25% 25 GM in PREMIX 1 EACH IV SCH (21:02)
[2020-03-14 05:30] LABS: Basophils % 0.1 % (0.0-0.8); Hematocrit 36.5 VOL% (35.7-47.0); Hemoglobin 11.3 GM/DL (12.0-16.0); Immature Granulocytes % 1.8 %; Immature Granulocytes Absolute 0.14 #; Lymphocytes # 0.4 10*3/uL (1.4-4.0); Lymphocytes % 4.8 % (21.3-54.2); Mean Corpuscular Volume 88.6 FL (87-102); Mean Platelet Volume 8.5 FL (9.6-12.0); Monocytes % 4.8 % (1.7-12.7); Neutrophils % 88.5 % (38.7-73.9); Platelet Count 263 T/CUMM (130-400); Red Blood Count 4.12 MC/CUMM (3.8-5.5); Red Cell Distribution Width 19.1 % (9.3-17.3); White Blood Count 7.9 T/CUMM (4-12)
[2020-03-14 05:59] LABS: Albumin 3.3 G/DL (3.4-5.0); Bilirubin,Total 0.6 MG/DL (0.2-1.0); Calcium 8.5 MG/DL (8.5-10.1); Lymphocytes 5 % (20-55); Osmolality,Calculated 277.4 MOS/KG (273-304); Platelet Estimate Adequate; Segmented Neutrophils 93 % (50-85); Total Cells Counted 100
[2020-03-14 06:00] LABS: Hypochromasia 1+; Microcytosis Slight; Ovalocytes Slight
[2020-03-14 11:37] VITALS: BP 122/73
[2020-03-14] MEDS ORDERED: HEPARIN LOCK FLUSH 500 UNIT/5 ML SYRINGE IV ONE (12:23)
[2020-03-14] MEDS: PALONOSETRON 0.25 MG/5 ML VIAL IV SCH (12:32)
[2020-03-14] MEDS: DEXAMETHASONE 10 MG/1 ML VIAL IV SCH (12:36)
[2020-03-14] MEDS: METOPROLOL SUCCINATE XL 50 MG TABLET PO SCH (12:39)
[2020-03-14] MEDS: APIXABAN 5 MG TABLET PO SCH (12:39)
== END 2020-03-14 15:49 | disposition home or self-care (01) | DRG 844 ==
LOC: N.3E
PROVIDERS: ADMIT Internal Medicine Hematology & Oncology; ATTEND Internal Medicine Hematology & Oncology

== ENCOUNTER 2020-04-02 07:02 | Inpatient (IN) ==
[2020-04-02] MEDS ORDERED: PROMETHAZINE INJ 25 MG in SODIUM CHLORIDE 0.9% 50 ML IV PRN (08:19)
[2020-04-02] MEDS ORDERED: ALPRAZolam 0.25 MG TABLET PO PRN (08:19)
[2020-04-02] MEDS ORDERED: chlorproMAZINE INJ 50 MG in SODIUM CHLORIDE 0.9% 100 ML IV PRN (08:19)
[2020-04-02] MEDS ORDERED: ACETAMINOPHEN 325 MG TABLET PO PRN (08:19)
[2020-04-02] MEDS ORDERED: LOPERAMIDE 2 MG CAPSULE PO PRN ×2 (08:19)
[2020-04-02] MEDS ORDERED: traMADol 50 MG TABLET PO PRN (08:19)
[2020-04-02] MEDS ORDERED: diphenhydrAMINE CAP 25 MG CAPSULE PO PRN (08:19)
[2020-04-02] MEDS ORDERED: LACTULOSE 20 GM/30 ML UDCUP PO PRN (08:19)
[2020-04-02] MEDS ORDERED: chlorproMAZINE INJ 25 MG in SODIUM CHLORIDE 0.9% 100 ML IV PRN (08:19)
[2020-04-02] MEDS ORDERED: guaiFENesin 200 MG/10 ML UDCUP PO PRN (08:19)
[2020-04-02] MEDS ORDERED: MAGNESIUM HYDROXIDE SUSP 30 ML UDCUP PO PRN (08:19)
[2020-04-02] MEDS ORDERED: chlorproMAZINE 25 MG TABLET PO PRN (08:19)
[2020-04-02] MEDS ORDERED: TEMAZEPAM 7.5 MG CAPSULE PO PRN (08:19)
[2020-04-02] MEDS ORDERED: MYLANTA/LIDO VISC 2:1 300 ML BOTTLE SWISH/SWAL PRN (08:19)
[2020-04-02] MEDS ORDERED: BENZTROPINE 2 MG/2 ML AMP IV PRN (08:19)
[2020-04-02] MEDS ORDERED: MYLANTA/LIDO VISC 2:1 300 ML BOTTLE SWISH/SPIT PRN (08:19)
[2020-04-02 08:35] LABS: Basophils # 0.1 10*3/uL (0.0-0.2); Basophils % 0.6 % (0.0-0.8); Hematocrit 32.4 VOL% (35.7-47.0); Hemoglobin 10.4 GM/DL (12.0-16.0); Immature Granulocytes % 0.5 %; Immature Granulocytes Absolute 0.05 #; Lymphocytes # 0.8 10*3/uL (1.4-4.0); Lymphocytes % 8.5 % (21.3-54.2); Mean Corpuscular HGB Conc 32.1 GM/DL (32-36); Mean Corpuscular Volume 84.8 FL (87-102); Monocytes % 11.3 % (1.7-12.7); Neutrophils % 79.1 % (38.7-73.9); Platelet Count 294 T/CUMM (130-400); Red Blood Count 3.82 MC/CUMM (3.8-5.5); Red Cell Distribution Width 18.2 % (9.3-17.3); White Blood Count 9.3 T/CUMM (4-12)
[2020-04-02 08:57] LABS: Alanine Aminotransferase 15 U/L (13-56); Albumin 3.8 G/DL (3.4-5.0); Alkaline Phosphatase 104 U/L (45-117); Aspartate Amino Transferase 14 U/L (0-37); Bilirubin,Total < 0.39 MG/DL (0.2-1.0); Blood Urea Nitrogen 11 MG/DL (7-18); Calcium 9.3 MG/DL (8.5-10.1); Carbon Dioxide 28 MMOL/L (21-32); Estimated Glom Filtration Rate 94 ML/MIN; Glucose 80 MG/DL (74-106); Osmolality,Calculated 272.7 MOS/KG (273-304); Potassium 3.7 MMOL/L (3.5-5.1); Sodium 138 MMOL/L (136-145); Total Protein 7.1 G/DL (6.4-8.3)
[2020-04-02] MEDS ORDERED: DOXORUBICIN IV SCH (09:00)
[2020-04-02] MEDS: PALONOSETRON 0.25 MG/5 ML VIAL IV SCH (09:47)
[2020-04-02] MEDS: DEXAMETHASONE 10 MG/1 ML VIAL IV SCH (09:50)
[2020-04-02] MEDS: FOSAPREPITANT 150 MG in SODIUM CHLORIDE 0.9% 100 ML IV SCH (09:54)
[2020-04-02] MEDS: ALBUMIN 25% 25 GM in PREMIX 1 EACH IV SCH (10:01)
[2020-04-02] MEDS: MESNA IV SCH (11:09)
[2020-04-02] MEDS: DOXORUBICIN IV SCH (11:09)
[2020-04-02] MEDS: IFOSFAMIDE IV SCH (11:09)
[2020-04-02] MEDS: SODIUM CHLORIDE 0.9% IV SCH ×2 (11:09)
[2020-04-02 13:24] LABS: Bacteria,Urine Occasional /HPF (Few); Bilirubin,Urine Negative (Negative); Blood, Urine Negative (Negative); Glucose,Urine (UA) 50 mg/dL (Negative); Ketones,Urine 5 mg/dL (Negative); Mucus,Urine Occasional /LPF (Occasional); Nitrite,Urine Negative (Negative); Protein,Urine Negative; RBC,Urine 3 /HPF (0-4); Squamous Epithelial Cell,Urine Occasional /HPF (0-10); Urine Appearance CLEAR (Clear); Urine Color Yellow (Yellow); Urine Specific Gravity 1.021 (1.001-1.035); Urine Urobilinogen < 2.0 EU/DL (0.2-1.0); WBC,Urine 5 /HPF (0-6)
[2020-04-02] MEDS: ONDANSETRON 4 MG/2 ML VIAL IV PRN (14:37)
[2020-04-02] MEDS: OLANZapine 5 MG TABLET PO SCH (20:28)
[2020-04-03] MEDS: PALONOSETRON 0.25 MG/5 ML VIAL IV SCH (09:16)
[2020-04-03] MEDS: DEXAMETHASONE 10 MG/1 ML VIAL IV SCH (09:17)
[2020-04-03] MEDS: ALBUMIN 25% 25 GM in PREMIX 1 EACH IV SCH (09:19)
[2020-04-03] MEDS: DOXORUBICIN IV SCH (12:49)
[2020-04-03] MEDS: SODIUM CHLORIDE 0.9% IV SCH ×2 (12:49→14:27)
[2020-04-03] MEDS: IFOSFAMIDE IV SCH (14:27)
[2020-04-03] MEDS: MESNA IV SCH (14:27)
[2020-04-03] MEDS: ALUMINUM/MAGNES/SIMETH MAX STR 30 ML UDCUP PO PRN (17:31)
[2020-04-03] MEDS: OLANZapine 5 MG TABLET PO SCH (20:32)
[2020-04-04 06:01] LABS: Basophils % 0.1 % (0.0-0.8); Hematocrit 30.5 VOL% (35.7-47.0); Hemoglobin 9.2 GM/DL (12.0-16.0); Immature Granulocytes % 0.7 %; Immature Granulocytes Absolute 0.09 #; Lymphocytes # 0.4 10*3/uL (1.4-4.0); Lymphocytes % 3.4 % (21.3-54.2); Mean Corpuscular HGB Conc 30.2 GM/DL (32-36); Mean Corpuscular Volume 90.2 FL (87-102); Mean Platelet Volume 9.1 FL (9.6-12.0); Monocytes % 10.1 % (1.7-12.7); Neutrophils % 85.7 % (38.7-73.9); Platelet Count 272 T/CUMM (130-400); Red Blood Count 3.38 MC/CUMM (3.8-5.5); Red Cell Distribution Width 18.2 % (9.3-17.3); White Blood Count 12.3 T/CUMM (4-12)
[2020-04-04 06:07] LABS: Alanine Aminotransferase 14 U/L (13-56); Albumin 3.8 G/DL (3.4-5.0); Alkaline Phosphatase 77 U/L (45-117); Aspartate Amino Transferase 7 U/L (0-37); Bilirubin,Total < 0.39 MG/DL (0.2-1.0); Blood Urea Nitrogen 11 MG/DL (7-18); Calcium 8.9 MG/DL (8.5-10.1); Carbon Dioxide 23 MMOL/L (21-32); Estimated Glom Filtration Rate 99 ML/MIN; Glucose 70 MG/DL (74-106); Osmolality,Calculated 273.5 MOS/KG (273-304); Potassium 3.7 MMOL/L (3.5-5.1); Sodium 139 MMOL/L (136-145); Total Protein 6.2 G/DL (6.4-8.3)
[2020-04-04 06:32] LABS: Band Neutrophils 2 % (0-10); Lymphocytes 2 % (20-55); Platelet Estimate Adequate; Segmented Neutrophils 89 % (50-85); Total Cells Counted 100
[2020-04-04 06:33] LABS: Hypochromasia 1+; Microcytosis 1+
[2020-04-04] MEDS: ALBUMIN 25% 25 GM in PREMIX 1 EACH IV SCH (11:15)
[2020-04-04] MEDS: METOPROLOL TARTRATE 50 MG TABLET PO SCH ×2 (12:01→20:29)
[2020-04-04] MEDS ORDERED: FOSAPREPITANT 150 MG in SODIUM CHLORIDE 0.9% 100 ML IV ONE (14:54)
[2020-04-04] MEDS: FOSAPREPITANT 150 MG in SODIUM CHLORIDE 0.9% 100 ML IV SCH ×2 (14:55→15:38)
[2020-04-04] MEDS: DEXAMETHASONE 10 MG/1 ML VIAL IV SCH (15:18)
[2020-04-04] MEDS: PALONOSETRON 0.25 MG/5 ML VIAL IV SCH (15:24)
[2020-04-04] MEDS: MESNA IV SCH (16:48)
[2020-04-04] MEDS: SODIUM CHLORIDE 0.9% IV SCH (16:48)
[2020-04-04] MEDS: IFOSFAMIDE IV SCH (16:48)
[2020-04-04] MEDS: OLANZapine 5 MG TABLET PO SCH (20:31)
[2020-04-04] MEDS: ONDANSETRON 4 MG/2 ML VIAL IV PRN (23:29)
[2020-04-05] MEDS ORDERED: SODIUM CHLORIDE 0.9% IV ONE ×2 (09:00→22:47)
[2020-04-05] MEDS ORDERED: MESNA IV ONE ×2 (09:00→22:47)
[2020-04-05] MEDS: METOPROLOL TARTRATE 50 MG TABLET PO SCH ×2 (09:16→21:10)
[2020-04-05] MEDS: PALONOSETRON 0.25 MG/5 ML VIAL IV SCH (09:16)
[2020-04-05] MEDS: ALUMINUM/MAGNES/SIMETH MAX STR 30 ML UDCUP PO PRN (09:16)
[2020-04-05] MEDS: DEXAMETHASONE 10 MG/1 ML VIAL IV SCH (09:17)
[2020-04-05] MEDS: ALBUMIN 25% 25 GM in PREMIX 1 EACH IV SCH (09:18)
[2020-04-05] MEDS: FAMOTIDINE 20 MG TABLET PO SCH ×2 (15:10→21:10)
[2020-04-05] MEDS: OLANZapine 5 MG TABLET PO SCH (21:10)
[2020-04-06] MEDS: METOPROLOL TARTRATE 50 MG TABLET PO SCH (10:20)
[2020-04-06] MEDS: FAMOTIDINE 20 MG TABLET PO SCH (10:20)
[2020-04-06] MEDS: PALONOSETRON 0.25 MG/5 ML VIAL IV SCH (10:21)
[2020-04-06 12:07] VITALS: BP 116/85
== END 2020-04-06 12:00 | disposition home or self-care (01) | DRG 847 ==
LOC: N.4E 07:02 → N.TELES 14:30
PROVIDERS: ADMIT Internal Medicine Hematology & Oncology; ATTEND Internal Medicine Hematology & Oncology

== ENCOUNTER 2020-04-23 08:00 | Inpatient (IN) ==
[2020-04-23] MEDS ORDERED: MYLANTA/LIDO VISC 2:1 300 ML BOTTLE SWISH/SPIT PRN (09:18)
[2020-04-23] MEDS ORDERED: PROMETHAZINE INJ 25 MG in SODIUM CHLORIDE 0.9% 50 ML IV PRN (09:18)
[2020-04-23] MEDS ORDERED: MYLANTA/LIDO VISC 2:1 300 ML BOTTLE SWISH/SWAL PRN (09:18)
[2020-04-23] MEDS ORDERED: ALPRAZolam 0.25 MG TABLET PO PRN (09:18)
[2020-04-23] MEDS ORDERED: guaiFENesin 200 MG/10 ML UDCUP PO PRN (09:18)
[2020-04-23] MEDS ORDERED: TEMAZEPAM 7.5 MG CAPSULE PO PRN (09:18)
[2020-04-23] MEDS ORDERED: LACTULOSE 20 GM/30 ML UDCUP PO PRN (09:18)
[2020-04-23] MEDS ORDERED: MAGNESIUM HYDROXIDE SUSP 30 ML UDCUP PO PRN (09:18)
[2020-04-23] MEDS ORDERED: diphenhydrAMINE CAP 25 MG CAPSULE PO PRN (09:18)
[2020-04-23] MEDS ORDERED: ACETAMINOPHEN 325 MG TABLET PO PRN (09:18)
[2020-04-23] MEDS ORDERED: ALUMINUM/MAGNES/SIMETH MAX STR 30 ML UDCUP PO PRN (09:18)
[2020-04-23] MEDS ORDERED: LOPERAMIDE 2 MG CAPSULE PO PRN ×2 (09:18)
[2020-04-23] MEDS ORDERED: traMADol 50 MG TABLET PO PRN (09:18)
[2020-04-23] MEDS ORDERED: oxyCODONE/ACETAMINOPHEN 5-325 MG TABLET PO PRN (09:29)
[2020-04-23] MEDS ORDERED: fentaNYL 75 MCG/HR PATCH TRANSDERM SCH (09:30)
[2020-04-23] MEDS ORDERED: APIXABAN 5 MG TABLET PO SCH (10:00)
[2020-04-23 10:02] LABS: Basophils % 0.5 % (0.0-0.8); Hematocrit 28.7 VOL% (35.7-47.0); Hemoglobin 8.7 GM/DL (12.0-16.0); Immature Granulocytes % 0.7 %; Immature Granulocytes Absolute 0.04 #; Lymphocytes # 0.5 10*3/uL (1.4-4.0); Lymphocytes % 9.4 % (21.3-54.2); Mean Corpuscular HGB Conc 30.3 GM/DL (32-36); Mean Platelet Volume 9.3 FL (9.6-12.0); Monocytes % 13.6 % (1.7-12.7); Neutrophils % 75.8 % (38.7-73.9); Platelet Count 327 T/CUMM (130-400); Red Blood Count 3.12 MC/CUMM (3.8-5.5); Red Cell Distribution Width 18.4 % (9.3-17.3); White Blood Count 5.7 T/CUMM (4-12)
[2020-04-23 10:25] LABS: Eosinophils 1 % (0-10); Hypochromasia 1+; Lymphocytes 10 % (20-55); Microcytosis 1+; Platelet Estimate Adequate; Segmented Neutrophils 80 % (50-85); Total Cells Counted 100
[2020-04-23 10:55] LABS: Alanine Aminotransferase 18 U/L (13-56); Albumin 3.5 G/DL (3.4-5.0); Alkaline Phosphatase 118 U/L (45-117); Aspartate Amino Transferase 18 U/L (0-37); Bilirubin,Total < 0.39 MG/DL (0.2-1.0); Blood Urea Nitrogen 6 MG/DL (7-18); Calcium 8.8 MG/DL (8.5-10.1); Carbon Dioxide 28 MMOL/L (21-32); Estimated Glom Filtration Rate 97 ML/MIN; Glucose 95 MG/DL (74-106); Osmolality,Calculated 278.3 MOS/KG (273-304); Potassium 3.7 MMOL/L (3.5-5.1); Sodium 141 MMOL/L (136-145)
[2020-04-23] MEDS ORDERED: FOSAPREPITANT 150 MG in SODIUM CHLORIDE 0.9% 100 ML IV ONE (11:00)
[2020-04-23] MEDS: METOPROLOL TARTRATE 50 MG TABLET PO SCH ×2 (11:41→20:28)
[2020-04-23] MEDS: ALBUMIN 25% 25 GM in PREMIX 1 EACH IV SCH (11:41)
[2020-04-23] MEDS: DEXAMETHASONE 10 MG/1 ML VIAL IV SCH (12:33)
[2020-04-23] MEDS: PALONOSETRON 0.25 MG/5 ML VIAL IV SCH (12:33)
[2020-04-23] MEDS: DOXORUBICIN IV SCH (14:25)
[2020-04-23] MEDS: MESNA IV SCH (14:25)
[2020-04-23] MEDS: IFOSFAMIDE IV SCH (14:25)
[2020-04-23] MEDS: SODIUM CHLORIDE 0.9% IV SCH ×2 (14:25)
[2020-04-23] MEDS: OLANZapine 5 MG TABLET PO SCH (20:25)
[2020-04-23] MEDS ORDERED: OLANZapine 5 MG TABLET PO SCH (21:00)
[2020-04-24 05:39] LABS: Basophils % 0.1 % (0.0-0.8); Hematocrit 29.9 VOL% (35.7-47.0); Hemoglobin 9.1 GM/DL (12.0-16.0); Immature Granulocytes % 0.9 %; Immature Granulocytes Absolute 0.08 #; Lymphocytes # 0.3 10*3/uL (1.4-4.0); Lymphocytes % 2.9 % (21.3-54.2); Mean Corpuscular HGB Conc 30.4 GM/DL (32-36); Mean Platelet Volume 8.9 FL (9.6-12.0); Monocytes % 0.9 % (1.7-12.7); Neutrophils % 95.2 % (38.7-73.9); Platelet Count 332 T/CUMM (130-400); Red Blood Count 3.18 MC/CUMM (3.8-5.5); Red Cell Distribution Width 18.3 % (9.3-17.3); White Blood Count 9.1 T/CUMM (4-12)
[2020-04-24 06:06] LABS: Anisocytosis 1+; Band Neutrophils 4 % (0-10); Lymphocytes 3 % (20-55); Macrocytosis 1+; Metamyelocytes 1 %; Platelet Estimate Normal; Segmented Neutrophils 91 % (50-85); Total Cells Counted 100
[2020-04-24 06:07] LABS: Acanthocytes Few; Hypochromasia Slight; Ovalocytes Few
[2020-04-24 06:09] LABS: Albumin 3.7 G/DL (3.4-5.0); Bilirubin,Total 0.6 MG/DL (0.2-1.0); Calcium 9.2 MG/DL (8.5-10.1); Osmolality,Calculated 277.5 MOS/KG (273-304); Total Protein 6.8 G/DL (6.4-8.3)
[2020-04-24] MEDS: METOPROLOL TARTRATE 50 MG TABLET PO SCH ×2 (12:30→20:32)
[2020-04-24] MEDS: APIXABAN 5 MG TABLET PO SCH ×2 (12:30→20:32)
[2020-04-24] MEDS: DEXAMETHASONE 10 MG/1 ML VIAL IV SCH (14:23)
[2020-04-24] MEDS: ONDANSETRON 4 MG/2 ML VIAL IV PRN ×2 (14:28→20:29)
[2020-04-24] MEDS: PALONOSETRON 0.25 MG/5 ML VIAL IV SCH (14:31)
[2020-04-24] MEDS ORDERED: diphenhydrAMINE 2% CREAM 28 GM TUBE TOP PRN (15:05)
[2020-04-24 15:09] LABS: Bacteria,Urine Occasional /HPF (Few); Bilirubin,Urine Negative (Negative); Blood, Urine Negative (Negative); Glucose,Urine (UA) >=500 mg/dL (Negative); Ketones,Urine 80 mg/dL (Negative); Mucus,Urine Occasional /LPF (Occasional); Nitrite,Urine Negative (Negative); Protein,Urine Negative; RBC,Urine 2 /HPF (0-4); Squamous Epithelial Cell,Urine Occasional /HPF (0-10); Urine Appearance CLEAR (Clear); Urine Color Yellow (Yellow); Urine Specific Gravity 1.015 (1.001-1.035); Urine Urobilinogen < 2.0 EU/DL (0.2-1.0); WBC,Urine 6 /HPF (0-6)
[2020-04-24] MEDS: ALBUMIN 25% 25 GM in PREMIX 1 EACH IV SCH (15:11)
[2020-04-24] MEDS: MESNA IV SCH (16:14)
[2020-04-24] MEDS: IFOSFAMIDE IV SCH (16:14)
[2020-04-24] MEDS: SODIUM CHLORIDE 0.9% IV SCH ×2 (16:14→16:16)
[2020-04-24] MEDS: DOXORUBICIN IV SCH (16:16)
[2020-04-24] MEDS: fentaNYL 75 MCG/HR PATCH TRANSDERM SCH (16:54)
[2020-04-24] MEDS: OLANZapine 5 MG TABLET PO SCH (20:32)
[2020-04-25 06:01] LABS: Basophils % 0.1 % (0.0-0.8); Hematocrit 26.6 VOL% (35.7-47.0); Hemoglobin 7.9 GM/DL (12.0-16.0); Immature Granulocytes % 0.8 %; Immature Granulocytes Absolute 0.08 #; Lymphocytes # 0.3 10*3/uL (1.4-4.0); Lymphocytes % 3.3 % (21.3-54.2); Mean Corpuscular HGB Conc 29.7 GM/DL (32-36); Mean Platelet Volume 9.9 FL (9.6-12.0); Monocytes % 9.7 % (1.7-12.7); Neutrophils % 86.1 % (38.7-73.9); Platelet Count 322 T/CUMM (130-400); Red Blood Count 2.83 MC/CUMM (3.8-5.5); Red Cell Distribution Width 18.3 % (9.3-17.3)
[2020-04-25 06:31] LABS: Band Neutrophils 1 % (0-10); Lymphocytes 5 % (20-55); Platelet Estimate Adequate; Segmented Neutrophils 84 % (50-85); Total Cells Counted 100
[2020-04-25 06:32] LABS: Hypochromasia 2+; Microcytosis 1+
[2020-04-25 06:37] LABS: Albumin 3.6 G/DL (3.4-5.0); Calcium 8.8 MG/DL (8.5-10.1); Osmolality,Calculated 280.1 MOS/KG (273-304); Total Protein 6.2 G/DL (6.4-8.3)
[2020-04-25] MEDS ORDERED: FOSAPREPITANT 150 MG in SODIUM CHLORIDE 0.9% 100 ML IV ONE (09:00)
[2020-04-25] MEDS: DEXAMETHASONE 10 MG/1 ML VIAL IV SCH (09:38)
[2020-04-25] MEDS: PALONOSETRON 0.25 MG/5 ML VIAL IV SCH (09:38)
[2020-04-25] MEDS: APIXABAN 5 MG TABLET PO SCH ×2 (09:39→20:09)
[2020-04-25] MEDS: METOPROLOL TARTRATE 50 MG TABLET PO SCH ×2 (09:39→20:09)
[2020-04-25] MEDS: ALBUMIN 25% 25 GM in PREMIX 1 EACH IV SCH (09:41)
[2020-04-25] MEDS: ONDANSETRON 4 MG/2 ML VIAL IV PRN (19:39)
[2020-04-25] MEDS: OLANZapine 5 MG TABLET PO SCH (20:10)
[2020-04-25] MEDS: MESNA IV SCH (20:15)
[2020-04-25] MEDS: IFOSFAMIDE IV SCH (20:15)
[2020-04-25] MEDS: SODIUM CHLORIDE 0.9% IV SCH (20:15)
[2020-04-26 06:37] LABS: Basophils % 0.1 % (0.0-0.8); Hematocrit 26.2 VOL% (35.7-47.0); Hemoglobin 8.3 GM/DL (12.0-16.0); Immature Granulocytes % 0.7 %; Immature Granulocytes Absolute 0.05 #; Lymphocytes # 0.4 10*3/uL (1.4-4.0); Lymphocytes % 5.6 % (21.3-54.2); Mean Corpuscular HGB Conc 31.7 GM/DL (32-36); Mean Corpuscular Volume 90.3 FL (87-102); Mean Platelet Volume 9.2 FL (9.6-12.0); Monocytes % 12.3 % (1.7-12.7); Neutrophils % 81.3 % (38.7-73.9); Platelet Count 274 T/CUMM (130-400); Red Cell Distribution Width 18.3 % (9.3-17.3); White Blood Count 7.6 T/CUMM (4-12)
[2020-04-26 07:16] LABS: Albumin 3.9 G/DL (3.4-5.0); Bilirubin,Total 0.4 MG/DL (0.2-1.0); Calcium 9.1 MG/DL (8.5-10.1); Osmolality,Calculated 278.3 MOS/KG (273-304); Potassium 3.9 MMOL/L (3.5-5.1); Total Protein 6.3 G/DL (6.4-8.3)
[2020-04-26] MEDS: ALBUMIN 25% 25 GM in PREMIX 1 EACH IV SCH (08:59)
[2020-04-26] MEDS: PALONOSETRON 0.25 MG/5 ML VIAL IV SCH (09:00)
[2020-04-26] MEDS: DEXAMETHASONE 10 MG/1 ML VIAL IV SCH (09:00)
[2020-04-26] MEDS: METOPROLOL TARTRATE 50 MG TABLET PO SCH ×2 (09:11→20:03)
[2020-04-26] MEDS: APIXABAN 5 MG TABLET PO SCH ×2 (09:11→20:03)
[2020-04-26] MEDS ORDERED: ALTEPLASE 2 MG VIAL INTRACATH ONE (09:38)
[2020-04-26] MEDS ORDERED: SODIUM CHLORIDE 0.9% IV ONE (12:00)
[2020-04-26] MEDS ORDERED: MESNA IV ONE (12:00)
[2020-04-26] MEDS: OLANZapine 5 MG TABLET PO SCH ×2 (20:03→20:52)
[2020-04-27 05:23] LABS: Basophils % 0.1 % (0.0-0.8); Hematocrit 26.9 VOL% (35.7-47.0); Hemoglobin 8.1 GM/DL (12.0-16.0); Immature Granulocytes % 0.7 %; Immature Granulocytes Absolute 0.06 #; Lymphocytes # 0.5 10*3/uL (1.4-4.0); Lymphocytes % 6.2 % (21.3-54.2); Mean Corpuscular HGB Conc 30.1 GM/DL (32-36); Mean Corpuscular Volume 92.4 FL (87-102); Mean Platelet Volume 9.4 FL (9.6-12.0); Monocytes % 7.3 % (1.7-12.7); Neutrophils % 85.7 % (38.7-73.9); Platelet Count 290 T/CUMM (130-400); Red Blood Count 2.91 MC/CUMM (3.8-5.5); Red Cell Distribution Width 17.9 % (9.3-17.3); White Blood Count 8.8 T/CUMM (4-12)
[2020-04-27 05:49] LABS: Bilirubin,Total 0.4 MG/DL (0.2-1.0); Calcium 8.8 MG/DL (8.5-10.1); Osmolality,Calculated 274.5 MOS/KG (273-304); Total Protein 6.5 G/DL (6.4-8.3)
[2020-04-27] MEDS: METOPROLOL TARTRATE 50 MG TABLET PO SCH (09:29)
[2020-04-27] MEDS: APIXABAN 5 MG TABLET PO SCH (09:29)
[2020-04-27] MEDS: fentaNYL 75 MCG/HR PATCH TRANSDERM SCH (09:46)
[2020-04-27] MEDS: PALONOSETRON 0.25 MG/5 ML VIAL IV SCH (09:47)
[2020-04-27] MEDS: DEXAMETHASONE 10 MG/1 ML VIAL IV SCH (10:55)
[2020-04-27 12:24] VITALS: BP 130/91
== END 2020-04-27 14:12 | disposition home or self-care (01) | DRG 847 ==
LOC: N.4E 08:00
PROVIDERS: ADMIT Internal Medicine Hematology & Oncology; ATTEND Internal Medicine Hematology & Oncology

== ENCOUNTER 2020-05-21 08:22 | Inpatient (IN) ==
[2020-05-21] MEDS ORDERED: guaiFENesin 200 MG/10 ML UDCUP PO PRN (09:59)
[2020-05-21] MEDS ORDERED: TEMAZEPAM 7.5 MG CAPSULE PO PRN (09:59)
[2020-05-21] MEDS ORDERED: LACTULOSE 20 GM/30 ML UDCUP PO PRN (09:59)
[2020-05-21] MEDS ORDERED: diphenhydrAMINE CAP 25 MG CAPSULE PO PRN (09:59)
[2020-05-21] MEDS ORDERED: ACETAMINOPHEN 325 MG TABLET PO PRN (09:59)
[2020-05-21] MEDS ORDERED: chlorproMAZINE INJ 25 MG in SODIUM CHLORIDE 0.9% 100 ML IV PRN (09:59)
[2020-05-21] MEDS ORDERED: PROMETHAZINE INJ 25 MG in SODIUM CHLORIDE 0.9% 50 ML IV PRN (09:59)
[2020-05-21] MEDS ORDERED: chlorproMAZINE INJ 50 MG in SODIUM CHLORIDE 0.9% 100 ML IV PRN (09:59)
[2020-05-21] MEDS ORDERED: ALPRAZolam 0.25 MG TABLET PO PRN (09:59)
[2020-05-21] MEDS ORDERED: MAGNESIUM HYDROXIDE SUSP 30 ML UDCUP PO PRN (09:59)
[2020-05-21] MEDS ORDERED: LOPERAMIDE 2 MG CAPSULE PO PRN ×2 (09:59)
[2020-05-21] MEDS ORDERED: BENZTROPINE 2 MG/2 ML AMP IV PRN (09:59)
[2020-05-21] MEDS ORDERED: ALUMINUM/MAGNES/SIMETH MAX STR 30 ML UDCUP PO PRN (09:59)
[2020-05-21] MEDS ORDERED: MYLANTA/LIDO VISC 2:1 300 ML BOTTLE SWISH/SWAL PRN (09:59)
[2020-05-21] MEDS ORDERED: traMADol 50 MG TABLET PO PRN (09:59)
[2020-05-21] MEDS ORDERED: MYLANTA/LIDO VISC 2:1 300 ML BOTTLE SWISH/SPIT PRN (09:59)
[2020-05-21] MEDS ORDERED: chlorproMAZINE 25 MG TABLET PO PRN (09:59)
[2020-05-21 10:20] LABS: Basophils % 0.3 % (0.0-0.8); Eosinophils % 0.6 % (0.00-10.9); Hematocrit 28.7 VOL% (35.7-47.0); Hemoglobin 8.7 GM/DL (12.0-16.0); Immature Granulocytes % 0.3 %; Immature Granulocytes Absolute 0.01 #; Lymphocytes # 0.7 10*3/uL (1.4-4.0); Lymphocytes % 20.2 % (21.3-54.2); Mean Corpuscular HGB Conc 30.3 GM/DL (32-36); Mean Corpuscular Volume 94.4 FL (87-102); Mean Platelet Volume 10.3 FL (9.6-12.0); Monocytes % 15.4 % (1.7-12.7); Neutrophils % 63.2 % (38.7-73.9); Platelet Count 258 T/CUMM (130-400); Red Blood Count 3.04 MC/CUMM (3.8-5.5); Red Cell Distribution Width 17.8 % (9.3-17.3); White Blood Count 3.4 T/CUMM (4-12)
[2020-05-21 10:44] LABS: Albumin 3.6 G/DL (3.4-5.0); Bilirubin,Total 0.7 MG/DL (0.2-1.0); Calcium 8.8 MG/DL (8.5-10.1); Osmolality,Calculated 280.1 MOS/KG (273-304); Potassium 3.6 MMOL/L (3.5-5.1); Total Protein 5.9 G/DL (5.0-7.5)
[2020-05-21 10:50] LABS: Band Neutrophils 3 % (0-10); Lymphocytes 17 % (20-55); Segmented Neutrophils 73 % (50-85); Total Cells Counted 100
[2020-05-21 10:53] LABS: Hypochromasia 1+; Microcytosis 1+
[2020-05-21 10:54] LABS: Platelet Estimate Normal
[2020-05-21] MEDS ORDERED: FOSAPREPITANT 150 MG in SODIUM CHLORIDE 0.9% 100 ML IV ONE (11:30)
[2020-05-21] MEDS ORDERED: DEXAMETHASONE 10 MG/1 ML VIAL IV SCH (11:30)
[2020-05-21] MEDS: ALBUMIN 25% 25 GM in PREMIX 1 EACH IV SCH (11:57)
[2020-05-21] MEDS ORDERED: DOXORUBICIN IV SCH (12:00)
[2020-05-21] MEDS: PALONOSETRON 0.25 MG/5 ML VIAL IV SCH (13:05)
[2020-05-21] MEDS: MESNA IV SCH (13:49)
[2020-05-21] MEDS: SODIUM CHLORIDE 0.9% IV SCH ×2 (13:49→13:59)
[2020-05-21] MEDS: IFOSFAMIDE IV SCH (13:49)
[2020-05-21] MEDS: DOXORUBICIN IV SCH (13:59)
[2020-05-21] MEDS ORDERED: oxyCODONE/ACETAMINOPHEN 5-325 MG TABLET PO PRN ×2 (15:35→15:36)
[2020-05-21] MEDS ORDERED: ONDANSETRON 4 MG TABLET PO PRN (15:36)
[2020-05-21 15:47] LABS: Bilirubin,Urine Negative (Negative); Blood, Urine Negative (Negative); Glucose,Urine (UA) Negative (Negative); Ketones,Urine Negative (Negative); Mucus,Urine Few /LPF (Occasional); Nitrite,Urine Negative (Negative); Protein,Urine 30 MG/DL; RBC,Urine 3 /HPF (0-4); Squamous Epithelial Cell,Urine Occasional /HPF (0-10); Urine Appearance CLEAR (Clear); Urine Color Yellow (Yellow); Urine Specific Gravity 1.018 (1.001-1.035); Urine Urobilinogen < 2.0 EU/DL (0.2-1.0); WBC,Urine 19 /HPF (0-6)
[2020-05-21] MEDS: OLANZapine 5 MG TABLET PO SCH (21:57)
[2020-05-21] MEDS: METOPROLOL TARTRATE 50 MG TABLET PO SCH (21:57)
[2020-05-22 05:50] LABS: Basophils % 0.4 % (0.0-0.8); Eosinophils % 0.4 % (0.00-10.9); Hematocrit 27.3 VOL% (35.7-47.0); Hemoglobin 8.1 GM/DL (12.0-16.0); Immature Granulocytes % 0.4 %; Immature Granulocytes Absolute 0.01 #; Lymphocytes # 0.6 10*3/uL (1.4-4.0); Lymphocytes % 23.9 % (21.3-54.2); Mean Corpuscular HGB Conc 29.7 GM/DL (32-36); Mean Corpuscular Volume 95.5 FL (87-102); Mean Platelet Volume 10.4 FL (9.6-12.0); Neutrophils % 60.9 % (38.7-73.9); Platelet Count 214 T/CUMM (130-400); Red Blood Count 2.86 MC/CUMM (3.8-5.5); Red Cell Distribution Width 17.3 % (9.3-17.3); White Blood Count 2.6 T/CUMM (4-12)
[2020-05-22 06:11] LABS: Albumin 3.3 G/DL (3.4-5.0); Bilirubin,Total 0.8 MG/DL (0.2-1.0); Potassium 3.2 MMOL/L (3.5-5.1); Total Protein 5.7 G/DL (5.0-7.5)
[2020-05-22 06:15] LABS: Atypical Lymphocytes Few; Band Neutrophils 2 % (0-10); Eosinophils 1 % (0-10); Hypochromasia 1+; Lymphocytes 29 % (20-55); Microcytosis 1+; Segmented Neutrophils 58 % (50-85); Total Cells Counted 100
[2020-05-22 06:16] LABS: Tear Drop Cells Slight
[2020-05-22 06:17] LABS: Ovalocytes Slight; Platelet Estimate Normal
[2020-05-22] MEDS: fentaNYL 75 MCG/HR PATCH TRANSDERM SCH (08:38)
[2020-05-22] MEDS: APIXABAN 5 MG TABLET PO SCH (08:40)
[2020-05-22] MEDS: METOPROLOL TARTRATE 50 MG TABLET PO SCH ×2 (08:40→21:17)
[2020-05-22] MEDS: POTASSIUM CHLORIDE 20 MEQ TABLET PO PRN ×4 (09:12→12:04)
[2020-05-22] MEDS: ONDANSETRON 4 MG/2 ML VIAL IV PRN ×2 (12:02→23:09)
[2020-05-22] MEDS: PALONOSETRON 0.25 MG/5 ML VIAL IV SCH (15:59)
[2020-05-22] MEDS: ALBUMIN 25% 25 GM in PREMIX 1 EACH IV SCH (16:00)
[2020-05-22] MEDS: SODIUM CHLORIDE 0.9% IV SCH ×2 (17:08→17:15)
[2020-05-22] MEDS: IFOSFAMIDE IV SCH (17:08)
[2020-05-22] MEDS: MESNA IV SCH (17:08)
[2020-05-22] MEDS: DOXORUBICIN IV SCH (17:15)
[2020-05-22] MEDS: OLANZapine 5 MG TABLET PO SCH (21:18)
[2020-05-23 06:09] LABS: Basophils % 0.5 % (0.0-0.8); Eosinophils % 0.5 % (0.00-10.9); Hematocrit 27.5 VOL% (35.7-47.0); Hemoglobin 8.3 GM/DL (12.0-16.0); Immature Granulocytes % 0.3 %; Immature Granulocytes Absolute 0.01 #; Lymphocytes # 0.5 10*3/uL (1.4-4.0); Mean Corpuscular HGB Conc 30.2 GM/DL (32-36); Mean Corpuscular Volume 94.8 FL (87-102); Mean Platelet Volume 10.2 FL (9.6-12.0); Monocytes % 14.6 % (1.7-12.7); Neutrophils % 71.1 % (38.7-73.9); Platelet Count 197 T/CUMM (130-400); Red Cell Distribution Width 17.2 % (9.3-17.3); White Blood Count 3.8 T/CUMM (4-12)
[2020-05-23 06:44] LABS: Albumin 3.7 G/DL (3.4-5.0); Bilirubin,Total 0.5 MG/DL (0.2-1.0); Calcium 9.4 MG/DL (8.5-10.1); Osmolality,Calculated 280.8 MOS/KG (273-304); Total Protein 5.8 G/DL (5.0-7.5)
[2020-05-23] MEDS: APIXABAN 5 MG TABLET PO SCH (08:30)
[2020-05-23] MEDS: PALONOSETRON 0.25 MG/5 ML VIAL IV SCH (08:30)
[2020-05-23] MEDS: METOPROLOL TARTRATE 50 MG TABLET PO SCH ×2 (08:30→21:11)
[2020-05-23] MEDS ORDERED: FOSAPREPITANT 150 MG in SODIUM CHLORIDE 0.9% 100 ML IV ONE (09:00)
[2020-05-23] MEDS: ALBUMIN 25% 25 GM in PREMIX 1 EACH IV SCH (09:35)
[2020-05-23] MEDS: OLANZapine 5 MG TABLET PO SCH (21:11)
[2020-05-23] MEDS: MESNA IV SCH (23:00)
[2020-05-23] MEDS: SODIUM CHLORIDE 0.9% IV SCH (23:00)
[2020-05-23] MEDS: IFOSFAMIDE IV SCH (23:00)
[2020-05-24 07:02] LABS: Basophils % 0.5 % (0.0-0.8); Eosinophils % 0.7 % (0.00-10.9); Hematocrit 27.4 VOL% (35.7-47.0); Hemoglobin 8.4 GM/DL (12.0-16.0); Immature Granulocytes % 0.5 %; Immature Granulocytes Absolute 0.02 #; Lymphocytes # 0.4 10*3/uL (1.4-4.0); Lymphocytes % 9.7 % (21.3-54.2); Mean Corpuscular HGB Conc 30.7 GM/DL (32-36); Mean Corpuscular Volume 92.6 FL (87-102); Mean Platelet Volume 11.5 FL (9.6-12.0); Monocytes % 12.1 % (1.7-12.7); Neutrophils % 76.5 % (38.7-73.9); Platelet Count 192 T/CUMM (130-400); Red Blood Count 2.96 MC/CUMM (3.8-5.5); Red Cell Distribution Width 17.1 % (9.3-17.3); White Blood Count 4.1 T/CUMM (4-12)
[2020-05-24 07:29] LABS: Albumin 3.8 G/DL (3.4-5.0); Bilirubin,Total 0.7 MG/DL (0.2-1.0); Calcium 9.1 MG/DL (8.5-10.1); Osmolality,Calculated 276.3 MOS/KG (273-304); Potassium 3.7 MMOL/L (3.5-5.1); Total Protein 6.2 G/DL (5.0-7.5)
[2020-05-24] MEDS: PALONOSETRON 0.25 MG/5 ML VIAL IV SCH (08:19)
[2020-05-24] MEDS: ALBUMIN 25% 25 GM in PREMIX 1 EACH IV SCH (08:19)
[2020-05-24] MEDS: METOPROLOL TARTRATE 50 MG TABLET PO SCH ×2 (08:20→20:38)
[2020-05-24] MEDS: APIXABAN 5 MG TABLET PO SCH (08:20)
[2020-05-24] MEDS ORDERED: MESNA IV ONE (12:00)
[2020-05-24] MEDS ORDERED: SODIUM CHLORIDE 0.9% IV ONE (12:00)
[2020-05-24] MEDS: OLANZapine 5 MG TABLET PO SCH (20:39)
[2020-05-25 07:09] LABS: Basophils % 0.6 % (0.0-0.8); Hematocrit 26.4 VOL% (35.7-47.0); Hemoglobin 8.5 GM/DL (12.0-16.0); Immature Granulocytes % 0.3 %; Immature Granulocytes Absolute 0.01 #; Lymphocytes # 0.3 10*3/uL (1.4-4.0); Lymphocytes % 9.2 % (21.3-54.2); Mean Corpuscular HGB Conc 32.2 GM/DL (32-36); Mean Corpuscular Volume 94.6 FL (87-102); Mean Platelet Volume 10.9 FL (9.6-12.0); Neutrophils % 80.9 % (38.7-73.9); Platelet Count 154 T/CUMM (130-400); Red Blood Count 2.79 MC/CUMM (3.8-5.5); Red Cell Distribution Width 16.4 % (9.3-17.3); White Blood Count 3.1 T/CUMM (4-12)
[2020-05-25 07:48] LABS: Albumin 3.9 G/DL (3.4-5.0); Bilirubin,Total 0.6 MG/DL (0.2-1.0); Calcium 9.1 MG/DL (8.5-10.1); Osmolality,Calculated 275.4 MOS/KG (273-304); Total Protein 6.4 G/DL (5.0-7.5)
[2020-05-25] MEDS: METOPROLOL TARTRATE 50 MG TABLET PO SCH (08:47)
[2020-05-25] MEDS: APIXABAN 5 MG TABLET PO SCH (08:47)
[2020-05-25] MEDS: fentaNYL 75 MCG/HR PATCH TRANSDERM SCH (08:48)
[2020-05-25] MEDS: PALONOSETRON 0.25 MG/5 ML VIAL IV SCH (08:52)
[2020-05-25 10:48] VITALS: BP 105/70
[2020-05-25] MEDS ORDERED: HEPARIN LOCK FLUSH 500 UNIT/5 ML SYRINGE IV ONE (12:20)
== END 2020-05-25 12:45 | disposition home or self-care (01) | DRG 847 ==
LOC: N.4E 08:22
PROVIDERS: ADMIT Internal Medicine Hematology & Oncology; ATTEND Internal Medicine Hematology & Oncology

== ENCOUNTER 2021-02-04 12:26 | Inpatient (IN) ==
[2021-02-04] MEDS ORDERED: METOCLOPRAMIDE 10 MG/2 ML VIAL IV STA (14:11)
[2021-02-04] MEDS ORDERED: PANTOPRAZOLE 40 MG VIAL IV STA (14:11)
[2021-02-04] MEDS ORDERED: SODIUM CHLORIDE 0.9% 1,000 ML IV STA (14:11)
[2021-02-04] MEDS ORDERED: ONDANSETRON 4 MG/2 ML VIAL IV STA (14:11)
[2021-02-04 15:00] LABS: Basophils % 0.2 % (0.0-0.8); Hematocrit 20.1 VOL% (35.7-47.0); Immature Granulocytes % 9.6 %; Immature Granulocytes Absolute 0.87 #; Lymphocytes # 0.3 10*3/uL (1.4-4.0); Lymphocytes % 2.8 % (21.3-54.2); Mean Corpuscular HGB Conc 31.8 GM/DL (32-36); Mean Corpuscular Volume 82.7 FL (87-102); Monocytes % 0.4 % (1.7-12.7); NRBC # 0.02 10*3/uL; Red Blood Count 2.43 MC/CUMM (3.8-5.5); Red Cell Distribution Width 16.7 % (9.3-17.3); White Blood Count 9.1 T/CUMM (4-12)
[2021-02-04 15:03] LABS: Hemoglobin 6.4 GM/DL (12.0-16.0); Platelet Count 17 T/CUMM (130-400)
[2021-02-04 15:20] LABS: Albumin 2.5 G/DL (3.4-5.0); Calcium 7.2 MG/DL (8.5-10.1); Osmolality,Calculated 274.2 MOS/KG (273-304); Potassium 3.7 MMOL/L (3.5-5.1); Total Protein 5.2 G/DL (6.4-8.2)
[2021-02-04 15:48] LABS: Amorphous Crystals,Urine Occasional /HPF (Few); Bacteria,Urine Occasional /HPF (Few); Bilirubin,Urine Negative (Negative); Blood, Urine Moderate mg/dL (Negative); Glucose,Urine (UA) 50 mg/dL (Negative); Ketones,Urine Negative (Negative); Nitrite,Urine Negative (Negative); Protein,Urine 100 MG/DL; Squamous Epithelial Cell,Urine Occasional /HPF (0-10); Urine Appearance CLOUDY (Clear); Urine Color Amber (Yellow); Urine Specific Gravity 1.015 (1.001-1.035)
[2021-02-04 16:17] LABS: Lymphocytes 4 % (20-55); Segmented Neutrophils 96 % (50-85); Total Cells Counted 100
[2021-02-04] MEDS ORDERED: hydrALAZINE 20 MG/1 ML VIAL IV PRN (16:19)
[2021-02-04] MEDS ORDERED: PROMETHAZINE 25 MG/1 ML VIAL IM PRN (16:19)
[2021-02-04] MEDS ORDERED: DOCUSATE SODIUM 100 MG CAPSULE PO PRN (16:19)
[2021-02-04] MEDS ORDERED: ALBUTEROL 2.5 MG/3 ML NEB RESP TX PRN (16:19)
[2021-02-04] MEDS ORDERED: GLUCAGON 1 MG VIAL IM PRN (16:19)
[2021-02-04 16:22] LABS: Microcytosis Slight; Platelet Estimate Decreased
[2021-02-04] MEDS ORDERED: SODIUM CHLORIDE 0.9% 1,000 ML IV PRN ×2 (16:26→16:29)
[2021-02-04] MEDS ORDERED: DEXTROSE 50% 25 GM/50 ML SYRINGE IV PRN (16:33)
[2021-02-04 18:47] LABS: Hemoglobin 5.1 GM/DL (12.0-16.0)
[2021-02-04] MEDS: SODIUM CHLORIDE 0.9% 1,000 ML IV SCH (19:00)
[2021-02-04] MEDS: MORPHINE 2 MG/1 ML SYRINGE IV PRN (22:26)
[2021-02-04] MEDS: ONDANSETRON 4 MG/2 ML VIAL IV PRN (22:26)
[2021-02-05] MEDS: SODIUM CHLORIDE 0.9% 1,000 ML IV SCH ×3 (01:31→23:14)
[2021-02-05] MEDS: MORPHINE 2 MG/1 ML SYRINGE IV PRN ×6 (03:11→23:13)
[2021-02-05 05:40] LABS: Basophils % 0.8 % (0.0-0.8); Hematocrit 33.9 VOL% (35.7-47.0); Hemoglobin 11.2 GM/DL (12.0-16.0); Immature Granulocytes % 12.3 %; Immature Granulocytes Absolute 0.32 #; Lymphocytes # 0.2 10*3/uL (1.4-4.0); Lymphocytes % 8.8 % (21.3-54.2); Mean Corpuscular Volume 82.5 FL (87-102); Monocytes % 0.8 % (1.7-12.7); Neutrophils % 77.3 % (38.7-73.9); Red Blood Count 4.11 MC/CUMM (3.8-5.5); Red Cell Distribution Width 15.2 % (9.3-17.3); White Blood Count 2.6 T/CUMM (4-12)
[2021-02-05 05:47] LABS: INR 0.9; PT Patient Result 10.3 SECS (10.5-12.0)
[2021-02-05 05:50] LABS: Bilirubin,Total 3.7 MG/DL (0.20-1.00)
[2021-02-05 05:59] LABS: Calcium 6.6 MG/DL (8.5-10.1); Osmolality,Calculated 275.1 MOS/KG (273-304); Potassium 3.9 MMOL/L (3.5-5.1); Thyroid Stimulating Hormone 2.32 uIU/ml (0.358-3.74)
[2021-02-05 06:01] LABS: Platelet Count 17 T/CUMM (130-400)
[2021-02-05 06:02] LABS: Hypochromasia 1+; Microcytosis 1+; Ovalocytes Slight; Platelet Estimate Decreased
[2021-02-05] MEDS: ONDANSETRON 4 MG/2 ML VIAL IV PRN (06:08)
[2021-02-05] MEDS ORDERED: SODIUM CHLORIDE 0.9% 1,000 ML IV PRN (07:15)
[2021-02-05 09:00] LABS: Hematocrit 35.4 VOL% (35.7-47.0); Hemoglobin 11.7 GM/DL (12.0-16.0)
[2021-02-05 09:27] LABS: Uric Acid 10.8 MG/DL (2.6-6.0)
[2021-02-05] MEDS: PANTOPRAZOLE 40 MG VIAL IV SCH (10:44)
[2021-02-05] MEDS: allopurinoL 100 MG TABLET PO SCH (10:44)
[2021-02-05] MEDS ORDERED: RASBURICASE 7.5 MG in SODIUM CHLORIDE 0.9% 50 ML IV ONE (12:00)
[2021-02-05 20:00] LABS: Basophils % 1.1 % (0.0-0.8); Hematocrit 30.7 VOL% (35.7-47.0); Hemoglobin 10.4 GM/DL (12.0-16.0); Immature Granulocytes % 28.1 %; Immature Granulocytes Absolute 0.25 #; Lymphocytes # 0.1 10*3/uL (1.4-4.0); Lymphocytes % 15.7 % (21.3-54.2); Mean Corpuscular HGB Conc 33.9 GM/DL (32-36); Mean Corpuscular Volume 79.9 FL (87-102); Monocytes % 1.1 % (1.7-12.7); Platelet Count 78 T/CUMM (130-400); Red Blood Count 3.84 MC/CUMM (3.8-5.5); Red Cell Distribution Width 15.4 % (9.3-17.3)
[2021-02-05 20:07] LABS: White Blood Count 0.9 T/CUMM (4-12)
[2021-02-05 21:07] LABS: Band Neutrophils 1 % (0-10); Lymphocytes 5 % (20-55); Platelet Estimate Decreased; Segmented Neutrophils 94 % (50-85); Total Cells Counted 100
[2021-02-05 21:08] LABS: Hypochromasia Slight; Microcytosis Slight
[2021-02-06] MEDS: MORPHINE 2 MG/1 ML SYRINGE IV PRN ×6 (02:45→22:10)
[2021-02-06 05:36] LABS: Basophils % 2.7 % (0.0-0.8); Hematocrit 31.1 VOL% (35.7-47.0); Hemoglobin 10.4 GM/DL (12.0-16.0); Immature Granulocytes % 16.2 %; Immature Granulocytes Absolute 0.06 #; Lymphocytes # 0.1 10*3/uL (1.4-4.0); Lymphocytes % 32.4 % (21.3-54.2); Mean Corpuscular HGB Conc 33.4 GM/DL (32-36); Mean Corpuscular Volume 80.8 FL (87-102); Monocytes % 2.7 % (1.7-12.7); Platelet Count 46 T/CUMM (130-400); Red Blood Count 3.85 MC/CUMM (3.8-5.5); Red Cell Distribution Width 15.6 % (9.3-17.3)
[2021-02-06 05:43] LABS: White Blood Count 0.4 T/CUMM (4-12)
[2021-02-06 05:44] LABS: Calcium 6.2 MG/DL (8.5-10.1); Osmolality,Calculated 283.5 MOS/KG (273-304); Potassium 4.6 MMOL/L (3.5-5.1)
[2021-02-06 06:02] LABS: Albumin 2.4 G/DL (3.4-5.0); Bilirubin,Total 5.1 MG/DL (0.20-1.00); Calcium 6.3 MG/DL (8.5-10.1); Osmolality,Calculated 281.8 MOS/KG (273-304); Potassium 4.6 MMOL/L (3.5-5.1); Total Protein 4.6 G/DL (6.4-8.2)
[2021-02-06] MEDS: SODIUM CHLORIDE 0.9% 1,000 ML IV SCH ×2 (07:14→14:18)
[2021-02-06 07:36] LABS: Lymphocytes 32 % (20-55); Platelet Estimate Decreased; Segmented Neutrophils 66 % (50-85); Total Cells Counted 100
[2021-02-06] MEDS: allopurinoL 100 MG TABLET PO SCH (08:00)
[2021-02-06] MEDS: AZITHROMYCIN 250 MG TABLET PO SCH (08:00)
[2021-02-06] MEDS: PANTOPRAZOLE 40 MG VIAL IV SCH (08:02)
[2021-02-06] MEDS ORDERED: oxyCODONE IR 5 MG TABLET PO PRN (08:30)
[2021-02-06] MEDS: LEVOFLOXACIN INJ 250 MG/50 ML PREMIX IV SCH (11:19)
[2021-02-06] MEDS: FILGRASTIM-SNDZ 300 MCG/0.5 ML SYRINGE SUBCUT SCH (11:22)
[2021-02-06] MEDS ORDERED: fentaNYL 75 MCG/HR PATCH TRANSDERM SCH (19:00)
[2021-02-06] MEDS: HYDROmorphone 2 MG/1 ML VIAL IV PRN ×2 (19:09→23:43)
[2021-02-06] MEDS: GABAPENTIN 300 MG CAPSULE PO SCH (20:53)
[2021-02-06] MEDS ORDERED: TEMAZEPAM 7.5 MG CAPSULE PO PRN (20:58)
[2021-02-06] MEDS ORDERED: LOPERAMIDE 2 MG CAPSULE PO PRN ×2 (20:58)
[2021-02-06] MEDS ORDERED: LACTULOSE 20 GM/30 ML UDCUP PO PRN (20:58)
[2021-02-07] MEDS: SODIUM CHLORIDE 0.9% 1,000 ML IV SCH (02:10)
[2021-02-07] MEDS: MORPHINE 2 MG/1 ML SYRINGE IV PRN ×2 (02:18→20:42)
[2021-02-07 05:17] LABS: Hematocrit 28.6 VOL% (35.7-47.0); Hemoglobin 9.4 GM/DL (12.0-16.0); Lymphocytes # 0.1 10*3/uL (1.4-4.0); Lymphocytes % 66.7 % (21.3-54.2); Mean Corpuscular HGB Conc 32.9 GM/DL (32-36); Mean Corpuscular Volume 82.9 FL (87-102); Neutrophils % 33.3 % (38.7-73.9); Platelet Count 45 T/CUMM (130-400); Red Blood Count 3.45 MC/CUMM (3.8-5.5); Red Cell Distribution Width 16.2 % (9.3-17.3)
[2021-02-07 05:18] LABS: White Blood Count 0.1 T/CUMM (4-12)
[2021-02-07 05:38] LABS: Albumin 2.2 G/DL (3.4-5.0); Bilirubin,Total 4.8 MG/DL (0.20-1.00); Calcium 6.2 MG/DL (8.5-10.1); Lymphocytes 66 % (20-55); Osmolality,Calculated 282.8 MOS/KG (273-304); Potassium 4.9 MMOL/L (3.5-5.1); Segmented Neutrophils 34 % (50-85); Total Cells Counted 100; Total Protein 4.9 G/DL (6.4-8.2)
[2021-02-07 05:39] LABS: Platelet Estimate Decreased
[2021-02-07 05:54] LABS: Calcium 6.1 MG/DL (8.5-10.1); Osmolality,Calculated 284.7 MOS/KG (273-304)
[2021-02-07] MEDS: HYDROmorphone 2 MG/1 ML VIAL IV PRN (08:03)
[2021-02-07] MEDS: GABAPENTIN 300 MG CAPSULE PO SCH ×2 (08:05→20:43)
[2021-02-07] MEDS: allopurinoL 100 MG TABLET PO SCH (08:06)
[2021-02-07] MEDS: AZITHROMYCIN 250 MG TABLET PO SCH (08:06)
[2021-02-07] MEDS: FILGRASTIM-SNDZ 300 MCG/0.5 ML SYRINGE SUBCUT SCH (08:06)
[2021-02-07] MEDS: PANTOPRAZOLE 40 MG VIAL IV SCH (08:07)
[2021-02-07] MEDS ORDERED: fentaNYL 75 MCG/HR PATCH TRANSDERM SCH (09:00)
[2021-02-07] MEDS ORDERED: BISACODYL 5 MG TABLET PO ONE (11:32)
[2021-02-07] MEDS: LINACLOTIDE 145 MCG CAPSULE PO SCH (15:29)
[2021-02-08] MEDS: SODIUM CHLORIDE 0.9% 1,000 ML IV SCH (02:59)
[2021-02-08 07:09] LABS: Hematocrit 28.1 VOL% (35.7-47.0); Hemoglobin 8.8 GM/DL (12.0-16.0); Mean Corpuscular HGB Conc 31.3 GM/DL (32-36); Mean Corpuscular Volume 86.5 FL (87-102); Red Blood Count 3.25 MC/CUMM (3.8-5.5); Red Cell Distribution Width 17.2 % (9.3-17.3)
[2021-02-08 07:11] LABS: Platelet Count 30 T/CUMM (130-400); White Blood Count 0.1 T/CUMM (4-12)
[2021-02-08] MEDS ORDERED: SODIUM CHLORIDE 0.9% 1,000 ML IV PRN (07:15)
[2021-02-08 07:40] LABS: Bilirubin,Total 3.7 MG/DL (0.20-1.00); Calcium 6.2 MG/DL (8.5-10.1); Osmolality,Calculated 279.9 MOS/KG (273-304); Potassium 5.5 MMOL/L (3.5-5.1); Total Protein 4.9 G/DL (6.4-8.2)
[2021-02-08 07:49] LABS: Osmolality,Calculated 287.4 MOS/KG (273-304); Potassium 5.7 MMOL/L (3.5-5.1)
[2021-02-08 07:54] LABS: Calcium 5.7 MG/DL (8.5-10.1)
[2021-02-08 08:20] LABS: Lymphocytes 80 % (20-55); Segmented Neutrophils 20 % (50-85)
[2021-02-08 08:21] LABS: Burr Cells Few; Hypochromasia 2+; Ovalocytes Few; Platelet Estimate Decreased; Schistocytes Slight; Target Cells Slight; Total Cells Counted 10
[2021-02-08] MEDS: GABAPENTIN 300 MG CAPSULE PO SCH ×2 (10:04→20:13)
[2021-02-08] MEDS: LINACLOTIDE 145 MCG CAPSULE PO SCH (10:04)
[2021-02-08] MEDS: allopurinoL 100 MG TABLET PO SCH (10:04)
[2021-02-08] MEDS: FILGRASTIM-SNDZ 300 MCG/0.5 ML SYRINGE SUBCUT SCH (10:05)
[2021-02-08] MEDS: PANTOPRAZOLE 40 MG VIAL IV SCH (10:05)
[2021-02-08] MEDS: LEVOFLOXACIN INJ 250 MG/50 ML PREMIX IV SCH (10:06)
[2021-02-08] MEDS ORDERED: HEPARIN LOCK FLUSH 500 UNIT/5 ML SYRINGE IV ONE (10:22)
[2021-02-08] MEDS ORDERED: LORazepam 2 MG/1 ML VIAL IV PRN (16:06)
[2021-02-08] MEDS ORDERED: MORPHINE 2 MG/1 ML SYRINGE IV PRN ×2 (16:08)
[2021-02-09 00:07] VITALS: BP 52/29
== END 2021-02-09 04:05 | disposition expired | DRG 843 ==
LOC: N.ED 12:26 → SUATTDRO 16:19 → N.EDINP 16:19 → N.2W 17:21 → N.2E 02-06 10:31
PROVIDERS: ADMIT Internal Medicine; ATTEND Internal Medicine